=== PATIENT | male | born 1970 | race Caucasian/White ===

== ENCOUNTER 2020-09-02 08:42 | Emergency (ER) | payer OTHER ==
[2020-09-02 08:49] VITALS: RESP 18
[2020-09-02] MEDS ORDERED: LIDOCAINE 1% INJ 10MG/ML (20 ML MDV) SQ ONE (09:15)
[2020-09-02] MEDS ORDERED: KETOROLAC 15 MG/ML 1 ML VIAL IM STA (09:32)
--- NOTE | 2020-09-02 10:03 | US ---
EXAMINATION TYPE: US extremity nonvasc mass LT DATE OF EXAM: 09/02/2020 COMPARISON: NONE CLINICAL HISTORY: poss abscess L hand. Pain and swollen area left palm. Drainage attempted, nothing a spirated. Area of pain/swelling complex lesion = 2.x 2.2 x 1.3 cm, ? abscess. IMPRESSION: Collection as noted may reflect abscess.
--- NOTE | 2020-09-02 10:32 | ED ---
General Adult HPI - General Chief complaint: Extremity Injury, Upper Stated complaint: Extremity Injury Time Seen by Provider: 09/02/20 09:00 Source: patient, RN notes reviewed Mode of arrival: ambulatory Limitations: no limitations - History of Present Illness Initial comments: Patient is a 50-year-old male with a past history of diabetes who presents to the emergency room for pain of the left hand. Patient reports that he has a history of abscesses and believes he has an abscess of the left hand. States he has a history of MRSA. Patient states this has been there for about 3 days but seems to be worsening. States he tried to poke it himself but could not get pus.patient does not have any fevers. He denies difficulty bending his fingers. Denies spreading or streaking redness. Patient has no other complaints at this time including shortness of breath, chest pain, abdominal pain, nausea or vomiting, headache, or visual changes. - Related Data Home Medications Medication Instructions Recorded Confirmed Ibuprofen [Motrin Ib] 400 mg PO Q8H PRN 09/02/20 09/02/20 Previous Rx's Medication Instructions Recorded Clindamycin [Cleocin] 450 mg PO Q8H 7 Days #63 cap 09/02/20 Allergies Allergy/AdvReac Type Severity Reaction Status Date / Time Sulfa (Sulfonamide AdvReac Rash/Hives Verified 09/02/20 09:12 Antibiotics) Review of Systems ROS Statement: Those systems with pertinent positive or pertinent negative responses have been documented in the HPI. ROS Other: All systems not noted in ROS Statement are negative. Past Medical History Past Medical History: Diabetes Mellitus History of Any Multi-Drug Resistant Organisms: MRSA Date of last positivie culture/infection: 2013 MDRO Source:: bilat lower leg Past Surgical History: No Surgical Hx Reported Past Psychological History: No Psychological Hx Reported Smoking Status: Current every day smoker Past Alcohol Use History: Occasional Past Drug Use History: Marijuana General Exam Limitations: no limitations General appearance: alert, in no apparent distress Head exam: Present: atraumatic Eye exam: Present: normal appearance, PERRL, EOMI. Absent: scleral icterus ENT exam: Present: normal exam, mucous membranes moist Neck exam: Present: normal inspection, full ROM. Absent: tenderness Respiratory exam: Present: normal lung sounds bilaterally. Absent: respiratory distress, wheezes Cardiovascular Exam: Present: regular rate, normal rhythm, normal heart sounds Extremities exam: Present: full ROM (Full range of motion of all fingers including the left first and second digits.), tenderness (Tenderness to the palmar aspect of the left hand between the second and third metacarpal heads. There is a fluctuant area here measuring 2 cm x 2 cm), normal capillary refill (Capillary refill less than 2 seconds in the left upper extremity. Radial pulse 2+.), other (There is no streaking or spreading redness of the left hand. No tenderness of the flexor or extensor tendons.) Course Vital Signs 09/02/20 09/02/20 08:47 10:09 Temperature 97.9 F Pulse Rate 115 H 85 Respiratory 18 18 Rate Blood Pressure 184/93 173/103 O2 Sat by Pulse 98 100 Oximetry Procedures - Dawson Protocol (Time Out) Procedure Performed:: Incision and drainage of left palm abscess Performing Provider: Jose Mondragon Nurse: Li Morris Patient Identification (2 identifiers required): Chart, Verbal, Arm Band, Name, Birthdate Patient/Legal Cost Reduction Engineer has Confirmed: Identity, Site, Procedure, Consent Site: left palm Site Marked: Yes Site Verified With Patient/Guardian: Yes - Incision & Drainage Consent Obtained: verbal consent Indication: abscess Site: hand Size (cm): 2 Anesthetic Used: lidocaine 1% Amount (mLs): 2 I&D Cleaning Method: Alcohol Wipe Sterile Field Used?: Yes Scalpel Used: #11 Needle Aspiration Performed?: Yes I&D Drainage Obtained: Pus, Blood Packing: Iodoform Patient Tolerated Procedure: well, no complications Medical Decision Making - Medical Decision Making I did attempt incision and drainage was not able to get drainage. Therefore ultrasound was obtained of the left hand which did show a 2.2 x 2 x 1.3 cm collection. Based on physical examination likely abscess. Dr. Vivas used ul trasound guided incision and drainage and was able to obtain about 3 mL of pus. Patient was started on clindamycin given his history of MRSA an ALLERGY to sulfa. Patient is stable for discharge home at this time given no streaking or starting redness, fevers, tenderness of the tendons, or difficulty moving the fingers. However I discussed very strict return parameters patient which he is agreeable to. Disposition Clinical Impression: Abscess Disposition: HOME SELF-CARE Condition: Good Instructions (If sedation given, give patient instructions): Abscess (ED) Additional Instructions: We stick and erratic as directed. Do warm compresses. Follow up with primary care for a recheck in 2 days. If you have any worsening symptoms such as spreading or streaking redness, worsening swelling, fevers, difficulty moving the fingers, or any other concerning symptoms return immediately to the emergency room. Prescriptions: Clindamycin [Cleocin] 450 mg PO Q8H 7 Days #63 cap Is patient prescribed a controlled substance at d/c from ED?: No Referrals: Noman Garcia MD [Primary Care Provider] - 1-2 days Time of Disposition: 10:39
[2020-09-02] MEDS ORDERED: CLINDAMYCIN 150 MG CAP PO STA (10:40)
[2020-09-02 10:52] VITALS: BP 159/96; PULSE 86; TEMP 98.7
== END 2020-09-02 10:52 | disposition home or self-care (01) ==
LOC: EC 08:42
DX: L02.512 Cutaneous abscess of left hand (principal); F17.200 Nicotine dependence, unspecified, uncomplicated; Z88.2 Allergy status to sulfonamides; Z86.14 Personal history of Methicillin resistant Staphylococcus aureus infection
CPT/HCPCS: 76882; 99284; 10060; 96372; J2001; J1885

== ENCOUNTER 2023-11-24 09:01 | Emergency (ER) | payer BC, OTHER ==
[2023-11-24] MEDS: PROPARACAINE 0.5% OPHTH DROPS 15 ML BTL RIGHT EYE STA (09:16)
[2023-11-24] MEDS: FLUORESCEIN STRIPS 1 MG STRIP RIGHT EYE ONE (09:16)
[2023-11-24 09:34] VITALS: RESP 18; TEMP 98
--- NOTE | 2023-11-24 09:40 | ED ---
Eye Problem HPI - General Chief complaint: Eye Problems Stated complaint: R eye pain Time Seen by Provider: 11/24/23 09:05 Source: patient, RN notes reviewed Mode of arrival: ambulatory Limitations: no limitations - History of Present Illness Initial comments: This is a 53 year old male who presents to the emergency department for right eye pain. States that this began a few days ago. Reports clear discharge associated with this. Denies any difficulty with his vision. States that it is more of a discomfort as opposed to severe pain. He does not wear contacts. 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 He also rubs his eyes frequently. - Related Data Home Medications Medication Instructions Recorded Confirmed Ibuprofen [Motrin Ib] 400 mg PO Q8H PRN 09/02/20 09/02/20 Previous Rx's Medication Instructions Recorded Clindamycin [Cleocin] 450 mg PO Q8H 7 Days #63 cap 09/02/20 Allergies Allergy/AdvReac Type Severity Reaction Status Date / Time Sulfa (Sulfonamide AdvReac Rash/Hives Verified 11/24/23 09:05 Antibiotics) Review of Systems ROS Statement: Those systems with pertinent positive or pertinent negative responses have been documented in the HPI. ROS Other: All systems not noted in ROS Statement are negative. Past Medical History Past Medical History: Diabetes Mellitus History of Any Multi-Drug Resistant Organisms: MRSA Date of last positivie culture/infection: 2013 MDRO Source:: bilat lower leg Past Surgical History: No Surgical Hx Reported Past Psychological History: No Psychological Hx Reported Smoking Status: Current every day smoker Past Alcohol Use History: Occasional Past Drug Use History: Marijuana General Exam Limitations: no limitations General appearance: alert, in no apparent distress Head exam: Present: atraumatic, normocephalic, normal inspection Eye exam: Present: PERRL, EOMI, other (Right conjunctival injection with clear drainage. Small corneal abrasion. No foreign bodies.) Respiratory exam: Present: normal lung sounds bilaterally. Absent: respiratory distress, wheezes, rales, rhonchi, stridor Cardiovascular Exam: Present: regular rate, normal rhythm, normal heart sounds. Absent: systolic murmur, diastolic murmur, rubs, gallop, clicks Neurological exam: Present: alert, oriented X3, CN II-XII intact Psychiatric exam: Present: normal affect, normal mood Skin exam: Present: warm, dry, intact, normal color. Absent: rash Course Vital Signs 11/24/23 11/24/23 09:02 10:06 Temperature 98 F 98 F Pulse Rate 80 77 Respiratory 18 18 Rate Blood Pressure 170/90 150/89 O2 Sat by Pulse 98 98 Oximetry Medical Decision Making - Medical Decision Making This is a 53-year-old male who presents to the emergency department for right eye pain. Was pt. sent in by a medical professional or institution? @ -No Did you speak to anyone other than the patient for history? @ -No Did you review nursing and triage notes? @ -Yes, and I agree, it is accurate with regards to the patient's symptoms. Were old charts reviewed? @ -No Differential Diagnosis? @ -Differential Eye Pain: Conjuncitivitis (viral, bacterial, allergic), corneal abrasion, foreign body, iritis, uveitis, keratitis, acute angle closure glaucoma, this is not meant to be an all-inclusive list. EKG interpreted by me (3pts min.)? @ -Not obtained X-rays interpreted by me (1pt min.)? @ -Not obtained CT interpreted by me (1pt min.)? @ -Not obtained U/S interpreted by me (1pt. min.)? @ -Not obtained What testing was considered but not performed? (CT, X-rays, U/S, labs)? Why? @ -None What meds were considered but not given? Why? @ -None Did you discuss the management of the patient with other professionals? @ -No Did you reconcile home meds? @ -No Was smoking cessation discussed for >3mins.? @ -I discussed smoking cessation for greater than 3 minutes. The risk of smoking were discussed with the patient including but not limited to risks of cancer, stroke, coronary artery disease and COPD. Also discussed with patient were multiple methods of quitting smoking. Lastly we discussed the financial cost of smoking. Was critical care preformed (if so, how long)? @ -No Were there social determinants of health that impacted care today? How? (Homelessness, low income, unemployed, alcoholism, drug addiction, transportation, low edu. Level, literacy, decrease access to med. care, assisted, rehab)? @ -No Was there de-escalation of care discussed even if they declined? (Discuss DNR or withdrawal of care, Hospice)? @ -No What co-morbidities impacted this encounter? (DM, HTN, Smoking, COPD, CAD, Cancer, CVA, Hep., AIDS, mental health diagnosis, sleep apnea, morbid obesity)? @ -DM, smoking Was patient admitted / discharged? @ -Discharged. Fluorescein staining demonstrates a small corneal abrasion. No foreign bodies were identified. He may also have a component of viral conjunctivitis. Tetanus vaccine is up-to-date. He was given a bottle of ciprofloxacin eyedrops in the emergency department to use for 5 days. He was also given artificial tears for symptomatic control. Advised ibuprofen and Tylenol as needed for pain relief. Information for ophthalmology follow-up provided and he was discharged home in stable condition. Undiagnosed new problem with uncertain prognosis? @ -None Drug Therapy requiring intensive monitoring for toxicity (Heparin, Nitro, Insulin, Cardizem)? @ -None Were any procedures done? @ -None Diagnosis/symptom? @ -Corneal abrasion, conjunctivitis Acute, or Chronic, or Acute on Chronic? @ -Acute Uncomplicated (without systemic symptoms) or Complicated (systemic symptoms)? @ -Uncomplicated Side effects of treatment? @ -None Exacerbation, Progression, or Severe Exacerbation] @ -Not applicable Poses a threat to life or bodily function? @ -No Return precautions reviewed in depth, the patient is instructed to return to the emergency department with any new, worsening, or concerning symptoms. Patient verbalized understanding. This case was discussed in detail with the attending ED physician, Dr. Nicholas. Presentation, findings, and treatment plan discussed in detail as well. Disposition Clinical Impression: Viral conjunctivitis, Corneal abrasion, right, Nicotine dependence Disposition: HOME SELF-CARE Instructions (If sedation given, give patient instructions): Corneal Abrasion (ED), Conjunctivitis (ED) Additional Instructions: Return to the emergency department with any new, worsening, or concerning symptoms. Apply the ciprofloxacin eyedrops provided as 2 drops to the right eye 4 times daily. You can apply the ketorolac eyedrops as 1 drop to the right eye every 6 hours as needed for pain control. You can apply the artificial tears 4- 6 times daily to help with symptoms as well. You can also try applying cool compresses. Contact the ice cream chef office as listed below first thing Sunday morning for a follow-up appointment. Follow up with your primary care provider in 1-2 days. Is patient prescribed a controlled substance at d/c from ED?: No Referrals: None,Stated [Primary Care Provider] - 1-2 days Armond Rocha MD [STAFF PHYSICIAN] - 1-2 days Flakito Ashley MD [STAFF PHYSICIAN] - 1-2 days Time of Disposition: 09:40
[2023-11-24] MEDS: CIPROFLOXACIN 0.3% OPHTH SOLN 5 ML BTL RIGHT EYE STA (10:02)
[2023-11-24] MEDS: KETOROLAC 0.5% OPHTH DROPS 5 ML BTL RIGHT EYE STA (10:02)
[2023-11-24] MEDS: ARTIFICIAL TEARS-HYPROMELLOSE DROPS 15 ML BTL RIGHT EYE STA (10:02)
[2023-11-24 10:24] VITALS: BP 150/89; PULSE 77
== END 2023-11-24 09:14 | disposition home or self-care (01) ==
LOC: EC 09:01
DX: S05.01XA Injury of conjunctiva and corneal abrasion without foreign body, right eye, initial encounter (principal); B30.9 Viral conjunctivitis, unspecified; E11.9 Type 2 diabetes mellitus without complications; F17.200 Nicotine dependence, unspecified, uncomplicated; Z88.2 Allergy status to sulfonamides; X58.XXXA Exposure to other specified factors, initial encounter
CPT/HCPCS: 99283; 99406

== ENCOUNTER 2024-06-19 16:33 | Inpatient (IN) | payer BC ==
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
[2024-06-19] MEDS ORDERED: VANCOMYCIN IV PER PHARMACY 1 EACH MISC MISCELLANE PRN (17:17)
[2024-06-19] MEDS: ONDANSETRON 4 MG/2 ML VIAL IVP STA (17:38)
[2024-06-19] MEDS: MORPHINE SULFATE 4 MG/ML SYRINGE IV STA (17:39)
[2024-06-19] MEDS: SODIUM CHLORIDE 0.9% 1,000 ML IV STA ×2 (17:41→18:25)
[2024-06-19] MEDS: cefTRIAXone IN SWFI 1,000 MG/10 ML SYRINGE IVP STA (17:41)
[2024-06-19] MEDS: VANCOMYCIN 1,500 MG in SODIUM CHLORIDE 0.9% 500 ML 500 ML IVPB ONE (17:46)
[2024-06-19 17:48] LABS: Basophils # (A) 0.1 k/uL (0-0.2); Basophils % (A) 1 %; Eosinophils # (A) 0.1 k/uL (0-0.7); Eosinophils % (A) 1 %; HCT 45.4 % (39.0-53.0); HGB 15.3 gm/dL (13.0-17.5); Lymphocytes # (A) 1.9 k/uL (1.0-4.8); Lymphocytes % (A) 12 %; MCH 31.6 pg (25.0-35.0); MCHC 33.8 g/dL (31.0-37.0); MCV 93.5 fL (80.0-100.0); Monocytes # (A) 0.7 k/uL (0-1.0); Monocytes % (A) 5 %; Neutrophils # (A) 12.6 k/uL (1.3-7.7); Neutrophils % (A) 81 %; Platelet Count 231 k/uL (150-450); RBC 4.85 m/uL (4.30-5.90); RDW 12.7 % (11.5-15.5); WBC 15.6 k/uL (3.8-10.6)
[2024-06-19 17:56] LABS: INR 0.8 (<1.2); Partial Thromboplastin Time 22.1 sec (22.0-30.0); Prothrombin Time 9.4 sec (10.0-12.5)
--- NOTE | 2024-06-19 17:59 | XR ---
EXAMINATION TYPE: XR hand complete RT DATE OF EXAM: 06/19/2024 5:33 PM COMPARISON: None CLINICAL INDICATION: Male, 53 years old with history of pain, pain TECHNIQUE: XR hand complete RT 3views were obtained. FINDINGS: Diffuse soft tissue swelling throughout the hand. No osseous erosion. Normal alignment of t he visualized joints. No acute osseous pathology is identified. No significant degeneration IMPRESSION: Soft tissue swelling without evidence of osseous erosion. No evidence for fracture. [facility], , 06/19/2024 5:57 PM
[2024-06-19 18:04] LABS: ALT 31 U/L (4-49); African American GFR (CKD) >90 (>60 ml/min/1.73 sqM); Alcohol <10 mg/dL; Anion Gap 10 mmol/L; Blood Urea Nitrogen 12 mg/dL (9-20); C Reactive Protein 4.8 mg/dL (<1.0); Calcium 8.9 mg/dL (8.4-10.2); Carbon Dioxide 22 mmol/L (22-30); Chloride 101 mmol/L (98-107); Creatine Kinase 64 U/L (55-170); Glucose 357 mg/dL (74-99); Non-African American GFR(CKD) >90 (>60 ml/min/1.73 sqM); Sodium 133 mmol/L (137-145); Total Bilirubin 0.9 mg/dL (0.2-1.3)
[2024-06-19 18:44] LABS: AST 38 U/L (17-59); Albumin 4.6 g/dL (3.5-5.0); Alkaline Phosphatase 157 U/L (38-126); Magnesium 1.9 mg/dL (1.6-2.3); Potassium 4.4 mmol/L (3.5-5.1); Total Protein 7.4 g/dL (6.3-8.2)
[2024-06-19] MEDS ORDERED: ONDANSETRON 4 MG/2 ML VIAL IVP PRN (18:53)
[2024-06-19] MEDS ORDERED: NALOXONE 0.4 MG/ML 1 ML VIAL IV PRN (18:53)
[2024-06-19] MEDS: SODIUM CHLORIDE 0.9% 1,000 ML IV SCH (19:22)
[2024-06-19] MEDS: MORPHINE SULFATE 4 MG/ML SYRINGE IV PRN (21:32)
[2024-06-19] MEDS: KETOROLAC 15 MG/ML 1 ML VIAL IVP SCH (23:14)
[2024-06-20] MEDS ORDERED: VANCOMYCIN 1,500 MG in SODIUM CHLORIDE 0.9% 500 ML 500 ML IVPB SCH
[2024-06-20] MEDS: VANCOMYCIN 1,500 MG in SODIUM CHLORIDE 0.9% 500 ML 500 ML IVPB SCH (01:24)
[2024-06-20 10:59] LABS: ALT 22 U/L (10-49); AST 14 U/L (14-35); Albumin 3.6 g/dL (3.8-4.9); Albumin/Globulin Ratio 1.64 Ratio (1.60-3.17); Alkaline Phosphatase 63 U/L (41-126); BUN/Creat Ratio 13.33 Ratio (12.00-20.00); Basophils # (A) 0.07 X 10*3/uL (0.00-0.10); Basophils % (A) 0.6 %; Calcium 7.8 mg/dL (8.7-10.3); Carbon Dioxide 19.1 mmol/L (21.6-31.8); Chloride 101 mmol/L (96-109); Eosinophils # (A) 0.12 X 10*3/uL (0.04-0.35); Eosinophils % (A) 1.1 %; Globulin 2.2 g/dL (1.6-3.3); Glucose 275 mg/dL (70-110); HCT 40.5 % (39.6-50.0); HGB 13.1 g/dL (13.0-17.0); Lymphocytes # (A) 1.41 X 10*3/uL (0.90-5.00); Lymphocytes % (A) 12.4 %; MCH 30.3 pg (27.0-32.0); MCHC 32.3 g/dL (32.0-37.0); MCV 93.5 FL (80.0-97.0); Magnesium 1.7 mg/dL (1.5-2.4); Mean Platelet Volume 9.9 FL (9.5-12.2); Monocytes # (A) 0.95 X 10*3/uL (0.20-1.00); Monocytes % (A) 8.3 %; NRBC Per 100 WBC 0 X 10*3/uL (0.00-0.01); Neutrophils # (A) 8.77 X 10*3/uL (1.80-7.70); Neutrophils % (A) 77.1 %; Phosphorus 2.1 mg/dL (2.4-5.1); Platelet Count 214 X 10*3/uL (140-440); Potassium 3.8 mmol/L (3.5-5.5); RBC 4.33 X 10*6/uL (4.40-5.60); RDW 12.3 % (11.5-14.5); Sodium 134 mmol/L (135-145); Total Bilirubin 0.4 mg/dL (0.3-1.2); Total Protein 5.8 g/dL (6.2-8.2); WBC 11.38 X 10*3/uL (4.50-10.00)
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
[2024-06-20 11:46] LABS: C Reactive Protein 17.1 mg/dL (<1.0)
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
[2024-06-21 06:06] LABS: Glucose,Whole Blood 254 mg/dL (70-110)
[2024-06-21] MEDS ORDERED: DEXTROSE 50% SYRINGE 50 ML IVP PRN ×4 (06:17→10:29)
[2024-06-21] MEDS: INSULIN ASPART (NovoLOG) 100 UNIT/ML VIAL SQ SCH (06:38)
[2024-06-21 09:08] LABS: African American GFR (CKD) >90 (>60 ml/min/1.73 sqM); Non-African American GFR(CKD) >90 (>60 ml/min/1.73 sqM)
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
[2024-06-21] MEDS: VANCOMYCIN TROUGH DUE 1 EACH MISC MISCELLANE ONE (09:37)
--- NOTE | 2024-06-21 11:34 | P.PCN ---
Date of Procedure: 06/21/24 Preoperative Diagnosis: Right hand infection with abscess between fourth and fifth metacarpal head Postoperative Diagnosis: Same Anesthesia: none Pathology: other (Deep wound culture from in between metacarpal heads sent to microbiology) Condition: stable Disposition: no change Description of Procedure: The patient was seen and examined at bedside today. He feels he has made some progress overnight with his IV antibiotics at his right hand. He still has some redness and soreness at the ulnar aspect of his right hand in particular between his metacarpal heads. He was able to have flexion and extension of the metacarpal heads and his interphalangeal joints. There was some tenderness between the metacarpal heads. The scabbing was apparent and stable. There seems to be some fluctuance between the metacarpal heads. I discussed with the patient the infection at the area and the possibly of an abscess at the space. He had some tenderness at the volar aspect of his metacarpal heads between the fourth and fifth. I discussed possibility of doing some gentle debridement at the area at bedside. We discussed possibly of going to surgery and doing this more formally but he felt he could tolerate some debridement at bedside. He has a long history of diabetes and neuropathy of his hands. He has had some diminished management of his diabetes over the past couple years. I felt we could do a little bit of deeper debridement if he would be able to tolerate I discussed the risk complications and the possibility that we may not be able to achieve full debridement and evacuation of the abscess but he felt he would be able to tolerate attempting this at bedside. he agreed to sign informed consent. At bedside I collected the appropriate materials and serially washed over the area I was able to dental debridement around the scabbing and remove superficial and fraying fragments at the area. The wound was approximately 2 x 2 x 1 cm deep. After unroofing some of the scabbing and soft tissue there was some fluid and pus that was coming from the deep area toward the metacarpal heads. I was able to probe the area and remove and debride some denuded tissue. As it was removed and excised about 1 to 2 cc of purulence. The wound was copiously irrigated blotted dry and a deep culture was taken from between the metacarpal heads of the purulent material. The wound was copiously irrigated with 1 L of saline cleaned dried and dressed with dry gauze. The patient tolerated well.
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
[2024-06-21 11:56] LABS: Glucose,Whole Blood 251 mg/dL (70-110)
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
[2024-06-21 14:56] VITALS: BMI 25.8
[2024-06-21 17:27] LABS: Glucose,Whole Blood 287 mg/dL (70-110)
[2024-06-21 20:37] LABS: Glucose,Whole Blood 263 mg/dL (70-110)
[2024-06-21] MEDS: INSULIN DETEMIR (LEVEMIR) 100 UNIT/ML SYR SQ SCH (20:42)
[2024-06-22 06:08] LABS: Glucose,Whole Blood 248 mg/dL (70-110)
[2024-06-22] MEDS: VANCOMYCIN 1,750 MG in SODIUM CHLORIDE 0.9% 500 ML 500 ML IVPB SCH (09:45)
--- NOTE | 2024-06-22 10:05 | P.PN ---
Progress Note - Text Progress Note Date: 06/22/24 Patient seen and examined at bedside. He says his hand still feels sore but may be slightly better. He denies any fevers or chills. Denies any new pains or changes. On exam Afebrile stable vital signs At his right hand I removed the dressing. There is some some small serosanguineous drainage on the dressing. Still able to milk some of the fluid and purulence out of the wound site itself. The erythema is less. He has adequate motion at his fingers. There is no streaking up his forearm. There is no tenderness over his tendon sheath Lab results from microbiology show presumptive MRSA from the wound culture yesterday Assessment and plan Right hand wound infection with abscess at the metatarsal head soft tissue status post bedside I&D yesterday Presumptive MRSA wound abscess, improving Diabetes with neuropathy The patient's wound site appears to be slowly healing. He is on appropriate antibiotics. There is still some drainage at the area. At bedside today I packed the wound lightly with iodoform gauze. He tolerated well. I think this can help with the drainage. We will have wound care see him for possible regular wound management and gauze changes. Final cultures are still pending. He will continue medical management as well.
[2024-06-22 10:08] LABS: ALT 38 U/L (10-49); AST 29 U/L (14-35); Albumin 3.3 g/dL (3.8-4.9); Albumin/Globulin Ratio 1.57 Ratio (1.60-3.17); Alkaline Phosphatase 62 U/L (41-126); BUN/Creat Ratio 20.67 Ratio (12.00-20.00); Blood Urea Nitrogen 12.4 mg/dL (9.0-27.0); Carbon Dioxide 26.9 mmol/L (21.6-31.8); Chloride 101 mmol/L (96-109); Globulin 2.1 g/dL (1.6-3.3); Glucose 269 mg/dL (70-110); Potassium 3.9 mmol/L (3.5-5.5); Sodium 136 mmol/L (135-145); Total Bilirubin <0.2 mg/dL (0.3-1.2); Total Protein 5.4 g/dL (6.2-8.2)
[2024-06-22 12:36] LABS: Glucose,Whole Blood 331 mg/dL (70-110)
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
[2024-06-22 14:06] LABS: Basophils % (A) 1.2 %; Eosinophils # (A) 0.19 X 10*3/uL (0.04-0.35); Eosinophils % (A) 2.2 %; HCT 37.6 % (39.6-50.0); HGB 12.5 g/dL (13.0-17.0); Lymphocytes # (A) 1.73 X 10*3/uL (0.90-5.00); Lymphocytes % (A) 20.2 %; MCH 30.7 pg (27.0-32.0); MCHC 33.2 g/dL (32.0-37.0); MCV 92.4 FL (80.0-97.0); Mean Platelet Volume 9.7 FL (9.5-12.2); Monocytes # (A) 0.74 X 10*3/uL (0.20-1.00); Monocytes % (A) 8.6 %; NRBC Per 100 WBC 0 X 10*3/uL (0.00-0.01); Neutrophils # (A) 5.74 X 10*3/uL (1.80-7.70); Platelet Count 242 X 10*3/uL (140-440); RBC 4.07 X 10*6/uL (4.40-5.60); RDW 12.3 % (11.5-14.5); WBC 8.57 X 10*3/uL (4.50-10.00)
[2024-06-22 17:28] LABS: Glucose,Whole Blood 301 mg/dL (70-110)
[2024-06-22 20:09] LABS: Glucose,Whole Blood 336 mg/dL (70-110)
[2024-06-22] MEDS: INSULIN DETEMIR (LEVEMIR) 100 UNIT/ML SYR SQ SCH (20:38)
[2024-06-23 05:41] LABS: Glucose,Whole Blood 233 mg/dL (70-110)
[2024-06-23 08:53] LABS: African American GFR (CKD) >90 (>60 ml/min/1.73 sqM); Non-African American GFR(CKD) >90 (>60 ml/min/1.73 sqM)
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
[2024-06-23] MEDS: VANCOMYCIN TROUGH DUE 1 EACH MISC MISCELLANE ONE (10:39)
[2024-06-23 12:27] LABS: Glucose,Whole Blood 227 mg/dL (70-110)
[2024-06-23 17:24] LABS: Glucose,Whole Blood 313 mg/dL (70-110)
[2024-06-23 20:18] LABS: Glucose,Whole Blood 240 mg/dL (70-110)
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
[2024-06-24 06:03] LABS: African American GFR (CKD) >90 (>60 ml/min/1.73 sqM); Non-African American GFR(CKD) >90 (>60 ml/min/1.73 sqM)
[2024-06-24 06:05] LABS: Glucose,Whole Blood 262 mg/dL (70-110)
[2024-06-24 07:36] VITALS: RESP 16
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
[2024-06-24 12:16] LABS: Glucose,Whole Blood 252 mg/dL (70-110)
[2024-06-24 13:56] VITALS: BP 154/87; PULSE 68; TEMP 97.9
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
== END 2024-06-24 16:40 | disposition home or self-care (01) | DRG 580 ==
LOC: EC 16:33 → 6NMEDSUR 18:55 → OBSVTOIN 06-20 12:56 → 6NMEDSUR 06-20 12:59
PROVIDERS: ADMIT Hospitalist; ATTEND Hospitalist
PROC: 0JBJ0ZZ Excision of Right Hand Subcutaneous Tissue and Fascia, Open Approach (ICD-10-PCS; principal; 2024-06-21)
DX: L02.511 Cutaneous abscess of right hand (principal); F10.239 Alcohol dependence with withdrawal, unspecified; L03.113 Cellulitis of right upper limb; E11.65 Type 2 diabetes mellitus with hyperglycemia; E11.40 Type 2 diabetes mellitus with diabetic neuropathy, unspecified; T23.061A Burn of unspecified degree of back of right hand, initial encounter; E11.622 Type 2 diabetes mellitus with other skin ulcer; L98.492 Non-pressure chronic ulcer of skin of other sites with fat layer exposed; R74.01 Elevation of levels of liver transaminase levels; B95.1 Streptococcus, group B, as the cause of diseases classified elsewhere; F17.200 Nicotine dependence, unspecified, uncomplicated; B95.62 Methicillin resistant Staphylococcus aureus infection as the cause of diseases classified elsewhere; X16.XXXA Contact with hot heating appliances, radiators and pipes, initial encounter; Y99.8 Other external cause status; Y90.0 Blood alcohol level of less than 20 mg/100 ml; Z87.11 Personal history of peptic ulcer disease; Z91.199 Patient's noncompliance with other medical treatment and regimen due to unspecified reason
CPT/HCPCS: 36415; 80053; 80202; 80320; 82550; 82565; 83036; 83605; 83735; 84100; 84145; 84443; 85025; 85610; 85652; 85730; 86140; 87040; 87070; 87077; 87186; 87205; 96365; 96366; 96368; 96375; 96376; 99284

== ENCOUNTER 2024-09-18 05:09 | Inpatient (IN) | payer BC ==
[2024-09-18] MEDS ORDERED: VANCOMYCIN IV PER PHARMACY 1 EACH MISC MISCELLANE PRN (05:39)
--- NOTE | 2024-09-18 06:03 | ED ---
General Adult HPI <Lai Shanks - Last Filed: 09/18/24 08:52> - General Source: patient Mode of arrival: wheelchair Limitations: no limitations <Manju Plasencia - Last Filed: 09/21/24 12:50> - General Chief complaint: Extremity Problem,Nontraumatic Stated complaint: Staph Infection R Leg Time Seen by Provider: 09/18/24 05:38 - History of Present Illness Initial comments: This is a 54-year-old gentleman with a past medical history of MRSA cellulitis presenting today for right groin infection. Patient states on Sunday he began noticing swelling to his inner right thigh. Continued to progress through this morning. Endorses nausea but no emesis. Denies chest pain. Denies abdominal pain, vomiting or diarrhea. Denies fevers endorses chills. No recent antibiotics. Denies difficulty urinating, hematuria or dysuria. (Manju Plasencia) - Related Data Home Medications Medication Instructions Recorded Confirmed Dapagliflozin Propanediol [Farxiga] 10 mg PO DAILY 09/18/24 09/18/24 Previous Rx's Medication Instructions Recorded metFORMIN HCL 1,000 mg PO BID #60 tablet 06/24/24 Allergies Allergy/AdvReac Type Severity Reaction Status Date / Time Sulfa (Sulfonamide Allergy Rash/Hives Verified 09/18/24 08:43 Antibiotics) Review of Systems ROS Other: All systems not noted in ROS Statement are negative. <DimitrisLai - Last Filed: 09/18/24 08:52> ROS Other: All systems not noted in ROS Statement are negative. <Manju Plasencia - Last Filed: 09/21/24 12:50> ROS Statement: Those systems with pertinent positive or pertinent negative responses have been documented in the HPI. Past Medical History Past Medical History: Diabetes Mellitus Additional Past Medical History / Comment(s): staph infection History of Any Multi-Drug Resistant Organisms: MRSA Date of last positivie culture/infection: 06/21/24 MDRO Source:: rt hand, bilat lower leg Past Surgical History: No Surgical Hx Reported Past Psychological History: No Psychological Hx Reported Smoking Status: Current every day smoker Past Alcohol Use History: Occasional Past Drug Use History: Marijuana <Manju Plasencia - Last Filed: 09/21/24 12:50> General Exam Limitations: no limitations <Manju Plasencia - Last Filed: 09/21/24 12:50> - General Exam Comments Initial Comments: PE: CONSTITUTIONAL: No apparent distress, well appearing SKIN: Warm, dry, no jaundice, hives or petechiae. Fluctuant area of erythema and swelling approx 10 cm in diameter without discharge, slight erythematous streaking towards groin EYES: Pupils are equally round, extraocular movements intact without nystagmus, clear conjunctiva, non-icteric sclera HENT: Normocephalic, atraumatic, moist mucus membranes, oropharynx clear without exudates NECK: , Full range of motion, normal appearance PULMONARY: Clear to auscultation without wheezes, rhonchi, or rales, normal excursion, no accessory muscle use and no stridor CARDIOVASCULAR: Tachycardia, regular rate, rhythm, normal S1 and S2. No appreciated murmurs, rubs or gallops. Strong radial pulses with intact distal perfusion. No lower extremity edema GASTROINTESTINAL: Soft, active bowel sounds throughout, non-tender, non- distended, no palpable masses, no rebound or guarding. 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 Moves all extremities x 4 without motor or sensory deficit PSYCHIATRIC:_normal mood and affect, thought process is clear and linear (Manju Plasencia) Course Vital Signs 09/18/24 09/18/24 09/18/24 05:14 08:17 09:26 Temperature 97.2 F L 98.7 F Pulse Rate 126 H 106 H 101 H Respiratory 16 24 20 Rate Blood Pressure 170/105 154/54 159/89 O2 Sat by Pulse 100 99 97 Oximetry 09/18/24 09/18/24 09/18/24 11:00 14:51 16:08 Temperature Pulse Rate 105 H 96 91 Respiratory 18 18 18 Rate Blood Pressure 140/78 143/83 134/85 O2 Sat by Pulse 98 99 99 Oximetry 09/18/24 09/19/24 09/19/24 22:00 03:39 05:47 Temperature 97.7 F 97.6 F Pulse Rate 87 80 81 Respiratory 18 17 15 Rate Blood Pressure 121/78 114/72 124/78 O2 Sat by Pulse 100 100 99 Oximetry 09/19/24 09/19/24 09/19/24 09:14 11:25 13:55 Temperature 98.0 F Pulse Rate 78 75 81 Respiratory 22 14 12 Rate Blood Pressure 136/82 118/79 123/78 O2 Sat by Pulse 100 99 99 Oximetry 09/19/24 17:14 Temperature 98.2 F Pulse Rate 79 Respiratory 12 Rate Blood Pressure 142/83 O2 Sat by Pulse 99 Oximetry EKG Findings - EKG Comments: EKG Findings:: Sinus tachycardia, rate 113 bpm NH interval 137 ms QT/QTc 310/377 ms, normal axis, no ST elevations or depressions, artifact present throughout, no STEMI <Manju Plasencia - Last Filed: 09/21/24 12:50> Medical Decision Making - Lab Data Result diagrams: 09/18/24 06:27 09/18/24 06:27 <Lai Shanks - Last Filed: 09/18/24 08:52> - Lab Data Result diagrams: 09/21/24 07:07 09/21/24 07:07 <Manju Plasencia - Last Filed: 09/21/24 12:50> - Medical Decision Making Patient is a 54-year-old male who was signed out to me pending results of remaining workup. Briefly, patient presents with right thigh pain, warmth, swelling with concern for infection. Is on the posterior medial aspect of the right thigh. No groin extension. Mildly fluctuant. Has a history of diabetes. Has been present for a few days. Laboratory studies returned remarkable for a white count of 22, as well as what appears to be DKA with hyperglycemia in the mid 200s, with a high anion gap and carbon dioxide less than 5. Patient is ac etone positive. Patient is tachycardic. No fever. Hemodynamically stable otherwise. Sepsis criteria met for prior physician at unknown time, however blood cultures and vancomycin ordered at approximately 6:30 AM. This is likely when the patient met criteria. Blood cultures already obtained and sent. Patient was started on broad-spectrum vancomycin and Rocephin and I did add on additional do sing of cefepime. Patient had multiple fluid boluses ordered for the patient to meet this 30 cc/kg fluid bolus requirement. I placed the patient on DKA protocol. CT imaging is interpreted by myself returned remarkable for inflammatory changes as well as a moderate size focal abscess in the medial right thigh with involvement of the anterior medial right thigh muscle. After the patient. He was in agreement the plan for admission workup. Consult placed to Dr. Gonzalez of general surgery. Consult to infectious disease placed. Spoke with the admitting provider, Dr. Cavazos of [facility] who accepted the admission. Diagnosis/symptom? @ -Sepsis secondary to Right thigh abscess/infection, DKA Acute, or Chronic, or Acute on Chronic? @ -Acute Uncomplicated (without systemic symptoms) or Complicated (systemic symptoms)? @ -Complicated Side effects of treatment? @ -None Exacerbation, Progression, or Severe Exacerbation] @ -No Poses a threat to life or bodily function? @ -Yes (Lai Shanks) Was pt. sent in by a medical professional or institution (, PA, YOUTH DIRECTOR, urgent care, hospital, or care home...) When possible be specific @ -No Did you speak to anyone other than the patient for history (EMS, parent, family, police, friend...)? What history was obtained from this source @ -No Did you review nursing and triage notes (agree or disagree)? Why? @ -I reviewed nursing and triage notes-patient here for right thigh pain, concern for MRSA infection Were old charts reviewed (outside hosp., previous admission, EMS record, old EKG, old radiological studies, urgent care reports/EKG's, care home records)? Report findings @ -Medical records reviewed reviewed discharge summary from 06/19/2024, patient had been admitted for right hand cellulitis and treated for alcohol drawl syndrome as well, blood cultures did show MRSA and patient was discharged on Zyvox Differential Diagnosis (chest pain, altered mental status, abdominal pain women, abdominal pain men, vaginal bleeding, weakness, fever, dyspnea, syncope, headache, dizziness, GI bleed, back pain, seizure, CVA, palpatations, mental health, musculoskeletal)? @Differential diagnosis remains broad over top considerations include cellulitis, abscess, infected hematoma, necrotic lymph node, this is not an all inclusive list EKG interpreted by me (3pts min.). @ -As above X-rays interpreted by me (1pt min.). @ -None done CT interpreted by me (1pt min.). @ pending at time of sign out U/S interpreted by me (1pt. min.). @ -None done What testing was considered but not performed or refused? (CT, X-rays, U/S, labs)? Why? @ -None What meds were considered but not given or refused? Why? @ -None Did you discuss the management of the patient with other professionals (professionals i.e. , PA, YOUTH DIRECTOR, lab, RT, psych nurse, social services analyst, car knocker, teacher, code enforcement officer, home health care case manager)? Give summary @ -No Was smoking cessation discussed for >3mins.? @ -No Was critical care preformed (if so, how long)? @ -No Were there social determinants of health that impacted care today? How? (Homelessness, low income, unemployed, alcoholism, drug addiction, transportation, low edu. Level, literacy, decrease access to med. care, [place] [facility], rehab)? @ -No Was there de-escalation of care discussed even if they declined (Discuss DNR or withdrawal of care, Hospice)? @ -No What co-morbidities impacted this encounter? (DM, HTN, Smoking, COPD, CAD, Cancer, CVA, ARF, Chemo, Hep., AIDS, mental health diagnosis, sleep apnea, morbid obesity)? @ DM, MRSA Was patient admitted / discharged? Hospital course, mention meds given and route, prescriptions, significant lab abnormalities, going to OR and other pertinent info. @ -Signed out to oncoming physician, Dr. Shanks, anticipate admission- Patient is a pleasant 54 y/o gentleman, hx DM, MRSA infection presenting for right thigh infection. Patient tachycardic on arrival, temp 97.2 oral, Blood pressure 170/105, respiratory rate of 16 and pulse ox of 100%. Exam significant for large palpable area of fluctuance and erythema of the right thigh, there is some streaking towards the right groin, there is no crepitus to palpation, erythema or swelling or tenderness palpation of the perianal region or testicular region. Given area of infection and its proximity to region, hx DM, will obtain CT pelvis to ensure no extension into perianal region. Vancomycin and Rocephin ordered, comprehensive labs, blood culture, lactic, CRP, 30 cc/kg IV fluid bolus. Morphine ordered for pain control. Of note patient's discharge summary from his recent admission in June stated he had a history of alcohol drawl syndrome. When I asked the patient about this he denied any history of alcohol use or alcohol withdrawal. States he does not drink alcohol currently. Patient signed out to oncoming physician pending completion of labs/imaging. (Manju Plasencia) - Lab Data Lab Results 09/18/24 09/18/24 09/18/24 Range/Units 06:27 06:27 06:27 WBC 22.1 H (3.8-10.6) k/uL RBC 5.34 (4.30-5.90) m/uL Hgb 15.9 (13.0-17.5) gm/dL Hct 51.3 (39.0-53.0) % MCV 96.1 (80.0-100.0) fL MCH 29.8 (25.0-35.0) pg MCHC 31.0 (31.0-37.0) g/dL RDW 13.8 (11.5-15.5) % Plt Count 347 (150-450) k/uL MPV 7.1 Neutrophils % 89 % Lymphocytes % 5 % Monocytes % 4 % Eosinophils % 0 % Basophils % 0 % Neutrophils # 19.7 H (1.3-7.7) k/uL Lymphocytes # 1.0 (1.0-4.8) k/uL Monocytes # 1.0 (0-1.0) k/uL Eosinophils # 0.0 (0-0.7) k/uL Basophils # 0.1 (0-0.2) k/uL Hypochromasia Moderate PT 10.8 (10.0-12.5) sec INR 1.0 (<1.2) APTT 26.7 (22.0-30.0) sec VBG pH (7.31-7.41) VBG pCO2 (37-51) mmHg VBG HCO3 (24-28) mmol/L Sodium 132 L (137-145) mmol/L Potassium 4.6 (3.5-5.1) mmol/L Chloride 99 (98-107) mmol/L Carbon Dioxide <5 L* (22-30) mmol/L Anion Gap mmol/L BUN 15 (9-20) mg/dL Creatinine 0.84 (0.66-1.25) mg/dL Est GFR (CKD-EPI)AfAm >90 (>60 ml/min/1.73 sqM) Est GFR (CKD-EPI)NonAf >90 (>60 ml/min/1.73 sqM) Glucose 243 H (74-99) mg/dL POC Glucose (mg/dL) (70-110) mg/dL POC Glu Hangar Attendant ID Estimated Ave Glu mg/dL mg/dL Hemoglobin A1c (<=6.0) % Plasma Lactic Acid Yoandy (0.7-2.0) mmol/L Calcium 9.1 (8.4-10.2) mg/dL Total Bilirubin 0.6 (0.2-1.3) mg/dL AST 20 (17-59) U/L ALT 19 (4-49) U/L Alkaline Phosphatase 88 (38-126) U/L C-Reactive Protein (<1.0) mg/dL Total Protein 7.4 (6.3-8.2) g/dL Albumin 4.2 (3.5-5.0) g/dL Serum Alcohol mg/dL Acetone, Qual (Negative) 09/18/24 09/18/24 09/18/24 Range/Units 06:27 06:27 06:27 WBC (3.8-10.6) k/uL RBC (4.30-5.90) m/uL Hgb (13.0-17.5) gm/dL Hct (39.0-53.0) % MCV (80.0-100.0) fL MCH (25.0-35.0) pg MCHC (31.0-37.0) g/dL RDW (11.5-15.5) % Plt Count (150-450) k/uL MPV Neutrophils % % Lymphocytes % % Monocytes % % Eosinophils % % Basophils % % Neutrophils # (1.3-7.7) k/uL Lymphocytes # (1.0-4.8) k/uL Monocytes # (0-1.0) k/uL Eosinophils # (0-0.7) k/uL Basophils # (0-0.2) k/uL Hypochromasia PT (10.0-12.5) sec INR (<1.2) APTT (22.0-30.0) sec VBG pH (7.31-7.41) VBG pCO2 (37-51) mmHg VBG HCO3 (24-28) mmol/L Sodium (137-145) mmol/L Potassium (3.5-5.1) mmol/L Chloride (98-107) mmol/L Carbon Dioxide (22-30) mmol/L Anion Gap mmol/L BUN (9-20) mg/dL Creatinine (0.66-1.25) mg/dL Est GFR (CKD-EPI)AfAm (>60 ml/min/1.73 sqM) Est GFR (CKD-EPI)NonAf (>60 ml/min/1.73 sqM) Glucose (74-99) mg/dL POC Glucose (mg/dL) (70-110) mg/dL POC Glu Hangar Attendant ID Estimated Ave Glu mg/dL mg/dL Hemoglobin A1c (<=6.0) % Plasma Lactic Acid Yoandy 1.6 (0.7-2.0) mmol/L Calcium (8.4-10.2) mg/dL Total Bilirubin (0.2-1.3) mg/dL AST (17-59) U/L ALT (4-49) U/L Alkaline Phosphatase (38-126) U/L C-Reactive Protein 36.6 H (<1.0) mg/dL Total Protein (6.3-8.2) g/dL Albumin (3.5-5.0) g/dL Serum Alcohol mg/dL Acetone, Qual Positive (Negative) 09/18/24 09/18/24 09/18/24 Range/Units 06:27 07:37 07:37 WBC (3.8-10.6) k/uL RBC (4.30-5.90) m/uL Hgb (13.0-17.5) gm/dL Hct (39.0-53.0) % MCV (80.0-100.0) fL MCH (25.0-35.0) pg MCHC (31.0-37.0) g/dL RDW (11.5-15.5) % Plt Count (150-450) k/uL MPV Neutrophils % % Lymphocytes % % Monocytes % % Eosinophils % % Basophils % % Neutrophils # (1.3-7.7) k/uL Lymphocytes # (1.0-4.8) k/uL Monocytes # (0-1.0) k/uL Eosinophils # (0-0.7) k/uL Basophils # (0-0.2) k/uL Hypochromasia PT (10.0-12.5) sec INR (<1.2) APTT (22.0-30.0) sec VBG pH 7.12 L* (7.31-7.41) VBG pCO2 23 L (37-51) mmHg VBG HCO3 8 L* (24-28) mmol/L Sodium (137-145) mmol/L Potassium (3.5-5.1) mmol/L Chloride (98-107) mmol/L Carbon Dioxide (22-30) mmol/L Anion Gap mmol/L BUN (9-20) mg/dL Creatinine (0.66-1.25) mg/dL Est GFR (CKD-EPI)AfAm (>60 ml/min/1.73 sqM) Est GFR (CKD-EPI)NonAf (>60 ml/min/1.73 sqM) Glucose (74-99) mg/dL POC Glucose (mg/dL) (70-110) mg/dL POC Glu Hangar Attendant ID Estimated [address] Glu mg/dL 194 mg/dL Hemoglobin A1c 8.4 H (<=6.0) % Plasma Lactic Acid Yoandy (0.7-2.0) mmol/L Calcium (8.4-10.2) mg/dL Total Bilirubin (0.2-1.3) mg/dL AST (17-59) U/L ALT (4-49) U/L Alkaline Phosphatase (38-126) U/L C-Reactive Protein (<1.0) mg/dL Total Protein (6.3-8.2) g/dL Albumin (3.5-5.0) g/dL Serum Alcohol <10 mg/dL Acetone, Qual (Negative) 09/18/24 Range/Units 07:57 WBC (3.8-10.6) k/uL RBC (4.30-5.90) m/uL Hgb (13.0-17.5) gm/dL Hct (39.0-53.0) % MCV (80.0-100.0) fL MCH (25.0-35.0) pg MCHC (31.0-37.0) g/dL RDW (11.5-15.5) % Plt Count (150-450) k/uL MPV Neutrophils % % Lymphocytes % % Monocytes % % Eosinophils % % Basophils % % Neutrophils # (1.3-7.7) k/uL Lymphocytes # (1.0-4.8) k/uL Monocytes # (0-1.0) k/uL Eosinophils # (0-0.7) k/uL Basophils # (0-0.2) k/uL Hypochromasia PT (10.0-12.5) sec INR (<1.2) APTT (22.0-30.0) sec VBG pH (7.31-7.41) VBG pCO2 (37-51) mmHg VBG HCO3 (24-28) mmol/L Sodium (137-145) mmol/L Potassium (3.5-5.1) mmol/L Chloride (98-107) mmol/L Carbon Dioxide (22-30) mmol/L Anion Gap mmol/L BUN (9-20) mg/dL Creatinine (0.66-1.25) mg/dL Est GFR (CKD-EPI)AfAm (>60 ml/min/1.73 sqM) Est GFR (CKD-EPI)NonAf (>60 ml/min/1.73 sqM) Glucose (74-99) mg/dL POC Glucose (mg/dL) 276 H (70-110) mg/dL POC Glu Hangar Attendant ID Gigi Gunter [address] Glu mg/dL mg/dL Hemoglobin A1c (<=6.0) % Plasma Lactic Acid Yoandy (0.7-2.0) mmol/L Calcium (8.4-10.2) mg/dL Total Bilirubin (0.2-1.3) mg/dL AST (17-59) U/L ALT (4-49) U/L Alkaline Phosphatase (38-126) U/L C-Reactive Protein (<1.0) mg/dL Total Protein (6.3-8.2) g/dL Albumin (3.5-5.0) g/dL Serum Alcohol mg/dL Acetone, Qual (Negative) Disposition Time of Disposition: 08:10 <Lai Shanks - Last Filed: 09/18/24 08:52> <Manju Plasencia - Last Filed: 09/21/24 12:50> Clinical Impression: DKA (diabetic ketoacidosis), Abscess of right thigh, Sepsis Disposition: ADMITTED IP TO THIS [facility] Condition: Serious
[2024-09-18 06:48] LABS: Basophils # (A) 0.1 k/uL (0-0.2); Basophils % (A) 0 %; Eosinophils % (A) 0 %; HCT 51.3 % (39.0-53.0); HGB 15.9 gm/dL (13.0-17.5); Hypochromasia Moderate; Lymphocytes % (A) 5 %; MCH 29.8 pg (25.0-35.0); MCV 96.1 fL (80.0-100.0); Mean Platelet Volume 7.1; Monocytes % (A) 4 %; Neutrophils # (A) 19.7 k/uL (1.3-7.7); Neutrophils % (A) 89 %; Platelet Count 347 k/uL (150-450); RBC 5.34 m/uL (4.30-5.90); RDW 13.8 % (11.5-15.5); WBC 22.1 k/uL (3.8-10.6)
[2024-09-18] MEDS: ONDANSETRON 4 MG/2 ML VIAL IVP STA (06:50)
[2024-09-18] MEDS: MORPHINE SULFATE 4 MG/ML SYRINGE IVP STA ×2 (06:51→09:20)
[2024-09-18 06:56] LABS: Partial Thromboplastin Time 26.7 sec (22.0-30.0); Prothrombin Time 10.8 sec (10.0-12.5)
[2024-09-18 07:02] LABS: ALT 19 U/L (4-49); AST 20 U/L (17-59); African American GFR (CKD) >90 (>60 ml/min/1.73 sqM); Albumin 4.2 g/dL (3.5-5.0); Alkaline Phosphatase 88 U/L (38-126); Blood Urea Nitrogen 15 mg/dL (9-20); Calcium 9.1 mg/dL (8.4-10.2); Chloride 99 mmol/L (98-107); Glucose 243 mg/dL (74-99); Non-African American GFR(CKD) >90 (>60 ml/min/1.73 sqM); Potassium 4.6 mmol/L (3.5-5.1); Sodium 132 mmol/L (137-145); Total Bilirubin 0.6 mg/dL (0.2-1.3); Total Protein 7.4 g/dL (6.3-8.2)
[2024-09-18 07:27] LABS: Carbon Dioxide <5 mmol/L (22-30)
--- NOTE | 2024-09-18 07:45 | CT ---
EXAMINATION TYPE: CT pelvis wo con DATE OF EXAM: 09/18/2024 COMPARISON: None. CLINICAL INDICATION: Male, 54 years old with history of R. thigh abscess, check for involve; PHH, Right thigh abscess check for involvement CT DLP: 285.2 mGycm Automated exposure control for dose reduction was used. FINDINGS: In the medial aspect of the right thigh there is focal ill-defined fluid collection with foci of air measuring approximately 6.0 x 3.1 cm transversely axial image 99 x 6.6 cm coronal image 48 with adjac ent moderate ill-defined fat stranding consistent with abscess. There is extension of air focus into anterior medial right thigh muscle axial image 100. There is no obvious involvement of the penile sha ft which is superior and medial to this.. There is no obvious scrotal involvement. IMPRESSION: Inflammatory change and moderate-size focal abscess in the medial right thigh with inflam matory change or involvement of an anterior medial right thigh muscle. [facility], , 09/18/2024 7:43 AM
[2024-09-18] MEDS ORDERED: Potassium Replacement Protocol 1 EACH MISC MISCELLANE PRN (07:49)
[2024-09-18] MEDS ORDERED: Magnesium Replacement Protocol 1 EACH MISC MISCELLANE PRN (07:49)
[2024-09-18] MEDS ORDERED: DEXTROSE 50% SYRINGE 50 ML IVP PRN ×2 (07:49)
[2024-09-18] MEDS: LACTATED RINGERS 1,000 ML IV SCH (07:51)
[2024-09-18] MEDS: VANCOMYCIN 1,250 MG in SODIUM CHLORIDE 0.9% 250 ML IVPB ONE (07:52)
[2024-09-18 07:58] LABS: Glucose,Whole Blood 276 mg/dL (70-110)
[2024-09-18] MEDS ORDERED: NALOXONE 0.4 MG/ML 1 ML VIAL IV PRN (08:11)
[2024-09-18] MEDS ORDERED: ACETAMINOPHEN TAB 325 MG TAB PO PRN (08:11)
[2024-09-18] MEDS ORDERED: ONDANSETRON 4 MG/2 ML VIAL IVP PRN (08:11)
[2024-09-18 08:12] LABS: VBG PH 7.12 (7.31-7.41)
[2024-09-18] MEDS: ENOXAPARIN 40 MG/0.4 ML SYRINGE SQ SCH (09:14)
[2024-09-18] MEDS: metroNIDAZOLE-NS PMX 500 MG in SALINE 1 100ML.BAG IVPB SCH (09:22)
[2024-09-18] MEDS: SODIUM CHLORIDE 0.9% 1,000 ML IV SCH (09:28)
[2024-09-18] MEDS: D5-0.45% NACL WITH KCL 20MEQ/L 1,000 ML IV SCH (09:50)
[2024-09-18] MEDS: INSULIN REGULAR 100 UNIT in SODIUM CHLORIDE 0.9% 100 ML IV SCH (09:51)
[2024-09-18 09:57] LABS: Glucose,Whole Blood 226 mg/dL (70-110)
[2024-09-18] MEDS: CEFEPIME 2 GM in SODIUM CHLORIDE 0.9% 100 ML IVPB SCH ×2 (10:24→18:22)
[2024-09-18 10:57] LABS: Glucose,Whole Blood 215 mg/dL (70-110)
[2024-09-18] MEDS: MORPHINE SULFATE 4 MG/ML SYRINGE IV PRN (11:03)
[2024-09-18 11:54] LABS: Glucose,Whole Blood 199 mg/dL (70-110)
[2024-09-18 12:08] LABS: African American GFR (CKD) >90 (>60 ml/min/1.73 sqM); Anion Gap 20 mmol/L; Blood Urea Nitrogen 15 mg/dL (9-20); Chloride 104 mmol/L (98-107); Glucose 203 mg/dL (74-99); Non-African American GFR(CKD) >90 (>60 ml/min/1.73 sqM); Potassium 3.9 mmol/L (3.5-5.1); Sodium 133 mmol/L (137-145)
[2024-09-18 12:11] LABS: Carbon Dioxide 9 mmol/L (22-30)
[2024-09-18 12:50] LABS: Glucose,Whole Blood 178 mg/dL (70-110)
--- NOTE | 2024-09-18 13:50 | P.GSCN ---
History of Present Illness Consult date: 09/18/24 History of present illness: CHIEF COMPLAINT: Right groin infection HISTORY OF PRESENT ILLNESS: This is a 54-year-old male who presents the hospital with a right groin infection. He does have a history of MRSA. Patient noted redness and swelling in the right inner thigh 4 days ago. Patient has a history of diabetes. He reports his hemoglobin A1c was 13. CT scan abdomen pelvis reported inflammatory change and moderate size focal abscess in the medial right thigh with inflammatory change. Surgical service consulted for right thigh abscess PAST MEDICAL HISTORY: Diabetes mellitus, history of MRSA PAST SURGICAL HISTORY: See below MEDICATIONS: See below ALLERGIES: See below SOCIAL HISTORY: No illicit drug use. Nicotine dependence. Marijuana use. REVIEW OF SYSTEMS: CONSTITUTIONAL: Denies fever or chills. HEENT: Denies blurred vision, vision changes, or eye pain. Denies hemoptysis CARDIOVASCULAR: Denies chest pain or pressure. RESPIRATORY: No shortness of breath. GASTROINTESTINAL: See HPI for pertinent findings HEMATOLOGIC: Denies bleeding disorders. GENITOURINARY: Denies any blood in urine or increased urinary frequency. SKIN: Denies pruitis. Denies rash. PHYSICAL EXAM: VITAL SIGNS: Reviewed GENERAL: Well-developed in no acute distress. HEENT: No sclera icterus. Extraocular movements grossly intact. Moist buccal mucosa. Head is atraumatic, normocephalic. No nasal drainage. ABDOMEN: Soft. Nondistended. Nontender NEUROLOGIC: Alert and oriented. Cranial nerves II through XII grossly intact. SKIN: Right groin and upper right thigh erythema, swelling, induration and evidence of fluctuance. No drainage noted. LABORATORY DATA: WBC 22.1 Hgb 15.9 platelets 347 Sodium 133 potassium 3.9 creatinine 0.72 Lactic acid 1.6 IMAGING: CT scan pelvis as stated above ASSESSMENT: 1. Right groin/upper thigh abscess 2. Diabetes mellitus PLAN: -Patient is status post bedside incision and drainage of right groin abscess with Dr. Gonzalez -Cultures obtained -Continue antibiotics -Agree with infectious disease consult -Recommend tight blood sugar control -Consistent carbohydrate diet ordered Physician Geodetic Advisor note has been reviewed by physician. Signing provider agrees with the documented findings, assessment, and plan of care. Past Medical History Past Medical History: Diabetes Mellitus Additional Past Medical History / Comment(s): staph infection History of Any Multi-Drug Resistant Organisms: MRSA Year Discovered:: 06/21/24 MDRO Source:: rt hand, bilat lower leg Past Surgical History: No Surgical Hx Reported Past Psychological History: No Psychological Hx Reported Smoking Status: Current every day smoker Past Alcohol Use History: Occasional Past Drug Use History: Marijuana Medications and Allergies Home Medications Medication Instructions Recorded Confirmed Type metFORMIN HCL 1,000 mg PO BID #60 tablet 06/24/24 09/18/24 Rx Dapagliflozin Propanediol [Farxiga] 10 mg PO DAILY 09/18/24 09/18/24 History Allergies Allergy/AdvReac Type Severity Reaction Status Date / Time Sulfa (Sulfonamide Allergy Rash/Hives Verified 09/18/24 08:43 Antibiotics) Surgical - Exam Vital Signs Temp Pulse Resp BP Pulse Ox 97.2 F L 126 H 16 170/105 100 09/18/24 05:14 09/18/24 05:14 09/18/24 05:14 09/18/24 05:14 09/18/24 05:14 Results - Labs 09/18/24 06:27 09/18/24 11:34 Abnormal Lab Results - Last 24 Hours (Table) 09/18/24 09/18/24 09/18/24 Range/Units 06:27 06:27 06:27 WBC 22.1 H (3.8-10.6) k/uL Neutrophils # 19.7 H (1.3-7.7) k/uL VBG pH (7.31-7.41) VBG pCO2 (37-51) mmHg VBG HCO3 (24-28) mmol/L Sodium 132 L (137-145) mmol/L Carbon Dioxide <5 L* (22-30) mmol/L Glucose 243 H (74-99) mg/dL POC Glucose (mg/dL) (70-110) mg/dL C-Reactive Protein 36.6 H (<1.0) mg/dL 09/18/24 09/18/24 09/18/24 Range/Units 07:37 07:57 09:48 WBC (3.8-10.6) k/uL Neutrophils # (1.3-7.7) k/uL VBG pH 7.12 L* (7.31-7.41) VBG pCO2 23 L (37-51) mmHg VBG HCO3 8 L* (24-28) mmol/L Sodium (137-145) mmol/L Carbon Dioxide (22-30) mmol/L Glucose (74-99) mg/dL POC Glucose (mg/dL) 276 H 226 H (70-110) mg/dL C-Reactive Protein (<1.0) mg/dL 09/18/24 Range/Units 10:56 WBC (3.8-10.6) k/uL Neutrophils # (1.3-7.7) k/uL VBG pH (7.31-7.41) VBG pCO2 (37-51) mmHg VBG HCO3 (24-28) mmol/L Sodium (137-145) mmol/L Carbon Dioxide (22-30) mmol/L Glucose (74-99) mg/dL POC Glucose (mg/dL) 215 H (70-110) mg/dL C-Reactive Protein (<1.0) mg/dL Diabetes panel 09/18/24 Range/Units 06:27 Sodium 132 L (137-145) mmol/L Potassium 4.6 (3.5-5.1) mmol/L Chloride 99 (98-107) mmol/L Carbon Dioxide <5 L* (22-30) mmol/L BUN 15 (9-20) mg/dL Creatinine 0.84 (0.66-1.25) mg/dL Glucose 243 H (74-99) mg/dL Calcium 9.1 (8.4-10.2) mg/dL AST 20 (17-59) U/L ALT 19 (4-49) U/L Alkaline Phosphatase 88 (38-126) U/L Total Protein 7.4 (6.3-8.2) g/dL Albumin 4.2 (3.5-5.0) g/dL Calcium panel 09/18/24 Range/Units 06:27 Calcium 9.1 (8.4-10.2) mg/dL Albumin 4.2 (3.5-5.0) g/dL Pituitary panel 09/18/24 Range/Units 06:27 Sodium 132 L (137-145) mmol/L Potassium 4.6 (3.5-5.1) mmol/L Chloride 99 (98-107) mmol/L Carbon Dioxide <5 L* (22-30) mmol/L BUN 15 (9-20) mg/dL Creatinine 0.84 (0.66-1.25) mg/dL Glucose 243 H (74-99) mg/dL Calcium 9.1 (8.4-10.2) mg/dL Adrenal panel 09/18/24 Range/Units 06:27 Sodium 132 L (137-145) mmol/L Potassium 4.6 (3.5-5.1) mmol/L Chloride 99 (98-107) mmol/L Carbon Dioxide <5 L* (22-30) mmol/L BUN 15 (9-20) mg/dL Creatinine 0.84 (0.66-1.25) mg/dL Glucose 243 H (74-99) mg/dL Calcium 9.1 (8.4-10.2) mg/dL Total Bilirubin 0.6 (0.2-1.3) mg/dL AST 20 (17-59) U/L ALT 19 (4-49) U/L Alkaline Phosphatase 88 (38-126) U/L Total Protein 7.4 (6.3-8.2) g/dL Albumin 4.2 (3.5-5.0) g/dL
[2024-09-18 13:56] LABS: Glucose,Whole Blood 147 mg/dL (70-110)
[2024-09-18 14:52] LABS: Glucose,Whole Blood 150 mg/dL (70-110)
[2024-09-18 14:54] LABS: Appearance,Urine Clear (Clear); Bilirubin,Urine Negative (Negative); Blood,Urine Trace (Negative); Color,Urine Colorless; Glucose,Urine (UA) 4+ (Negative); Leukocyte Esterase,Urine Negative (Negative); Nitrite,Urine Negative (Negative); PH, Urine 5.5 (5.0-8.0); Protein,Urine 1+ (Negative); RBC,Urine 1 /hpf (0-5); Specific Gravity,Urine 1.025 (1.001-1.035); Urobilinogen,Urine <2.0 mg/dL (<2.0)
--- NOTE | 2024-09-18 15:12 | P.HPIM ---
History of Present Illness H&P Date: 09/18/24 Patient is a 54-year-old male with history of type 2 diabetes presenting with right thigh pain. He claims that he started noticing swelling on his right inner thigh about 4 days ago which has since persistently getting bigger and more tender. He denies any fevers or chills. His oral intake has been pretty poor since then. He is also feeling extremely thirsty, has not taken his insuli n for over 2 weeks because of insurance issues. He denies any chest pain, shortness of breath, abdominal pain, did have episode of vomiting, denies any urinary or bowel complaints. He smokes 1 pack/day, no significant alcohol use, uses marijuana. In the ED, temperature was 97.2, pulse 126, blood pressure 170/105, respiratory rate 16, saturating at 100% on room air. WBC 22.1, hemoglobin 15.9, pH 7.12, pCO2 23, bicarb 8, sodium 132, creatinine 0.84, blood sugar 276, A1c 8.4, lactate 1.6, positive acetone, CRP 36.6. Pelvis CT showed moderate size focal abscess in the medial right thigh with inflammatory change or involvement of anterior medial right thigh muscle. EKG independently interpreted, shows sinus tachycardia and nonspecific ST-T wave changes. Patient was started on broad-spectrum antibiotics. Surgery and ID consulted. Pertinent positives and negatives as discussed in HPI, a complete review of systems was performed and all other systems are negative. Patient seen and examined at bedside. Vital signs reviewed General: nontoxic, no distress, appears at stated age Derm: warm, dry, right medial thigh fluctuant mass with surrounding erythema and tenderness to palpation Head: atraumatic, normocephalic, symmetric Eyes: EOMI, no lid lag, anicteric sclera, pupils equal round reactive to light ENT: Nose and ears atraumatic Neck: No thyromegaly, supple Mouth: no lip lesion, mucus membranes dry Cardiovascular: S1S2 reg, tachycardic, no murmur, no edema Lungs: clear to auscultation bilateral, no rhonchi, no rales, no wheeze, no accessory muscle use Abdominal: soft, nontender to palpation, no guarding, no appreciable organomegaly Ext: no gross muscle atrophy, muscle strength muscle strength 5 out of 5 in all 4 extremities, no contractures Neuro: CN II-XII grossly intact Psych: Alert, oriented, appropriate affect Assessment/Plan: Severe sepsis secondary to right thigh abscess -Blood cultures pending -Surgery note reviewed, did bedside I&D, tissue cultures pending -ID consulted -Patient continued on IV vancomycin 1.25 g every 8 hours, monitor for renal to xicity -Also on IV cefepime 2 g every 8 hours, IV Flagyl 500 IV every 8 hours -Pain control with oral Tylenol 650 every 6 hours IV morphine 4 mg every 4 hours as needed for severe pain monitor for sedation Euglycemic DKA History of type 2 diabetes, A1c 8.4 Hypovolemic hyponatremia Dehydration -Triggered by severe sepsis -On insulin drip, monitor blood sugars every hours -Continue to monitor BMP every 4 hours -Continue IV fluids, currently on 200 cc an hour normal saline, will switch to D5 half-normal saline once blood glucose is in range -Patient started on consistent carbohydrate diet, p.o. intake as tolerated -Zofran 4 mg IV every hour as needed -Discontinue SGLT2 inhibitor, hold metformin The patient is admitted with an anticipated greater than 2 midnight stay as inpatient status for evaluation of DKA and severe sepsis. Surrogate decision-maker: Sibling CODE STATUS: Full code DVT prophylaxis: Lovenox Anticipated discharge date: Pending clinical course Anticipated discharge place: Pending clinical course A total of 65 minutes was spent on the care of this complex patient more than 50% of the time was spent in counseling and care coordination. Patient was seen at 8 AM this morning. Charting delayed. Past Medical History Past Medical History: Diabetes Mellitus Additional Past Medical History / Comment(s): staph infection History of Any Multi-Drug Resistant Organisms: MRSA Date of last positivie culture/infection: 06/21/24 MDRO Source:: rt hand, bilat lower leg Past Surgical History: No Surgical Hx Reported Past Psychological History: No Psychological Hx Reported Smoking Status: Current every day smoker Past Alcohol Use History: Occasional Past Drug Use History: Marijuana Medications and Allergies Home Medications Medication Instructions Recorded Confirmed Type metFORMIN HCL 1,000 mg PO BID #60 tablet 06/24/24 09/18/24 Rx Dapagliflozin Propanediol [Farxiga] 10 mg PO DAILY 09/18/24 09/18/24 History Allergies Allergy/AdvReac Type Severity Reaction Status Date / Time Sulfa (Sulfonamide Allergy Rash/Hives Verified 09/18/24 08:43 Antibiotics) Physical Exam Vitals: Vital Signs Temp Pulse Resp BP Pulse Ox 09/18/24 14:51 96 18 143/83 99 09/18/24 11:00 105 H 18 140/78 98 09/18/24 09:26 101 H 20 159/89 97 09/18/24 08:17 98.7 F 106 H 24 154/54 99 09/18/24 05:14 97.2 F L 126 H 16 170/105 100 Intake and Output 09/18/24 09/18/24 09/18/24 06:59 14:59 22:59 Intake Total 35.564 Balance 35.564 Intake: Intake, IV Titration 35.564 Amount Insulin Regular 100 unit 35.564 In Sodium Chloride 0.9% 100 ml @ 0.1 UNITS/KG/HR 7.788 mls/hr IV .[id number] [facility] Rx#:[id number] Other: Weight 77.111 kg Results CBC & Chem 7: 09/18/24 06:27 09/18/24 11:34 Labs: Abnormal Lab Results - Last 24 Hours (Table) 09/18/24 09/18/24 09/18/24 Range/Units 06:27 06:27 06:27 WBC 22.1 H (3.8-10.6) k/uL Neutrophils # 19.7 H (1.3-7.7) k/uL VBG pH (7.31-7.41) VBG pCO2 (37-51) mmHg VBG HCO3 (24-28) mmol/L Sodium 132 L (137-145) mmol/L Carbon Dioxide <5 L* (22-30) mmol/L Glucose 243 H (74-99) mg/dL POC Glucose (mg/dL) (70-110) mg/dL Hemoglobin A1c (<=6.0) % C-Reactive Protein 36.6 H (<1.0) mg/dL 09/18/24 09/18/24 09/18/24 Range/Units 06:27 07:37 07:57 WBC (3.8-10.6) k/uL Neutrophils # (1.3-7.7) k/uL VBG pH 7.12 L* (7.31-7.41) VBG pCO2 23 L (37-51) mmHg VBG HCO3 8 L* (24-28) mmol/L Sodium (137-145) mmol/L Carbon Dioxide (22-30) mmol/L Glucose (74-99) mg/dL POC Glucose (mg/dL) 276 H (70-110) mg/dL Hemoglobin A1c 8.4 H (<=6.0) % C-Reactive Protein (<1.0) mg/dL 09/18/24 09/18/24 09/18/24 Range/Units 09:48 10:56 11:34 WBC (3.8-10.6) k/uL Neutrophils # (1.3-7.7) k/uL VBG pH (7.31-7.41) VBG pCO2 (37-51) mmHg VBG HCO3 (24-28) mmol/L Sodium 133 L (137-145) mmol/L Carbon Dioxide 9 L* (22-30) mmol/L Glucose 203 H (74-99) mg/dL POC Glucose (mg/dL) 226 H 215 H (70-110) mg/dL Hemoglobin A1c (<=6.0) % C-Reactive Protein (<1.0) mg/dL 09/18/24 09/18/24 09/18/24 Range/Units 11:52 12:48 13:54 WBC (3.8-10.6) k/uL Neutrophils # (1.3-7.7) k/uL VBG pH (7.31-7.41) VBG pCO2 (37-51) mmHg VBG HCO3 (24-28) mmol/L Sodium (137-145) mmol/L Carbon Dioxide (22-30) mmol/L Glucose (74-99) mg/dL POC Glucose (mg/dL) 199 H 178 H 147 H (70-110) mg/dL Hemoglobin A1c (<=6.0) % C-Reactive Protein (<1.0) mg/dL 09/18/24 Range/Units 14:50 WBC (3.8-10.6) k/uL Neutrophils # (1.3-7.7) k/uL VBG pH (7.31-7.41) VBG pCO2 (37-51) mmHg VBG HCO3 (24-28) mmol/L Sodium (137-145) mmol/L Carbon Dioxide (22-30) mmol/L Glucose (74-99) mg/dL POC Glucose (mg/dL) 150 H (70-110) mg/dL Hemoglobin A1c (<=6.0) % C-Reactive Protein (<1.0) mg/dL
[2024-09-18 15:13] LABS: Ketones,Urine 4+ (Negative)
[2024-09-18 15:59] LABS: Glucose,Whole Blood 140 mg/dL (70-110)
--- NOTE | 2024-09-18 16:05 | P.OP ---
Date of Procedure: 09/18/24 Preoperative Diagnosis: Right thigh abscess Postoperative Diagnosis: right thigh abscess Procedure(s) Performed: incision and drainage of right thigh abscess Anesthesia: local Surgeon: Curt Gonzalez Estimated Blood Loss (ml): 5 Pathology: other (culture of wound) Condition: stable Disposition: floor Description of Procedure: the patient was placed on his bed in the supine position. His right medial thigh was prepped in AP sterile fashion. The skin was anesthetized 1% local Xylocaine. Using 1 blade the skin incised. Approximately 20 cc of purulent fluid was removed. The wound was cultured. The wound was then packed with Kerlix. Patient tolerated well.
[2024-09-18] MEDS: VANCOMYCIN 1,250 MG in SODIUM CHLORIDE 0.9% 250 ML IVPB SCH (16:10)
[2024-09-18 16:25] LABS: African American GFR (CKD) >90 (>60 ml/min/1.73 sqM); Anion Gap 10 mmol/L; Blood Urea Nitrogen 13 mg/dL (9-20); Calcium 7.9 mg/dL (8.4-10.2); Carbon Dioxide 17 mmol/L (22-30); Chloride 103 mmol/L (98-107); Glucose 149 mg/dL (74-99); Non-African American GFR(CKD) >90 (>60 ml/min/1.73 sqM); Potassium 3.9 mmol/L (3.5-5.1); Sodium 130 mmol/L (137-145)
[2024-09-18 17:16] LABS: Glucose,Whole Blood 146 mg/dL (70-110)
[2024-09-18 18:11] LABS: Glucose,Whole Blood 151 mg/dL (70-110)
[2024-09-18 19:06] LABS: Glucose,Whole Blood 150 mg/dL (70-110)
[2024-09-18 20:41] LABS: Glucose,Whole Blood 170 mg/dL (70-110)
[2024-09-18 20:51] LABS: African American GFR (CKD) >90 (>60 ml/min/1.73 sqM); Anion Gap 9 mmol/L; Blood Urea Nitrogen 12 mg/dL (9-20); Calcium 7.8 mg/dL (8.4-10.2); Carbon Dioxide 18 mmol/L (22-30); Chloride 103 mmol/L (98-107); Glucose 169 mg/dL (74-99); Non-African American GFR(CKD) >90 (>60 ml/min/1.73 sqM); Potassium 3.9 mmol/L (3.5-5.1); Sodium 130 mmol/L (137-145)
[2024-09-18 21:12] LABS: Glucose,Whole Blood 159 mg/dL (70-110)
[2024-09-18 22:09] LABS: Glucose,Whole Blood 222 mg/dL (70-110)
[2024-09-18 23:10] LABS: Glucose,Whole Blood 222 mg/dL (70-110)
--- NOTE | 2024-09-18 23:16 | P.CONS ---
History of Present Illness - Reason for Consult Consult date: 09/18/24 Right thigh abscess Requesting physician: Lai Shanks - Chief Complaint Right upper thigh pain swelling and redness x days - History of Present Illness Patient is a 54-year-old male with a past medical history difficult for diabetes mellitus skin and soft tissue infection presenting to the hospital for evaluation of right groin/upper thigh area pain swelling redness patient mention it started as a small pimple that he noticed on Sunday that is about 4 d ays before presentation to hospital that has progressed to get worse patient mention he did squeeze it a small amount of pus came out subsequent noticed to have worsening pain and swelling and redness with right upper thigh area patient is currently the pain to be sharp almost 10 out of 10 severity when he came in patient denies having any high-grade fever or any chills on presentation to the hospital patient was afebrile he was tachycardic but not hypotensive or hypoxic patient did have a white count of 22.1 creatinine 0.59 liver isms are normal urine negative patient did have a bedside I&D of this abscess culture have been obtained he was started on vancomycin and cefepime infectious disease was consulted for further management of antibiotic therapy Review of Systems Positive point and negatives has been mentioned in the HPI, complete review of systems was performed and all other systems are negative Past Medical History Past Medical History: Diabetes Mellitus Additional Past Medical History / Comment(s): staph infection History of Any Multi-Drug Resistant Organisms: MRSA Year Discovered:: 06/21/24 MDRO Source:: rt hand, bilat lower leg Past Surgical History: No Surgical Hx Reported Past Psychological History: No Psychological Hx Reported Smoking Status: Current every day smoker Past Alcohol Use History: Occasional Past Drug Use History: Marijuana - Past Family History Father Family Medical History: No Reported History Medications and Allergies Home Medications Medication Instructions Recorded Confirmed Type metFORMIN HCL 1,000 mg PO BID #60 tablet 06/24/24 09/18/24 Rx Dapagliflozin Propanediol [Farxiga] 10 mg PO DAILY 09/18/24 09/18/24 History Allergies Allergy/AdvReac Type Severity Reaction Status Date / Time Sulfa (Sulfonamide Allergy Rash/Hives Verified 09/18/24 08:43 Antibiotics) Physical Exam Vitals: Vital Signs Temp Pulse Resp BP Pulse Ox 09/18/24 11:00 105 H 18 140/78 98 09/18/24 09:26 101 H 20 159/89 97 09/18/24 08:17 98.7 F 106 H 24 154/54 99 09/18/24 05:14 97.2 F L 126 H 16 170/105 100 Intake and Output 09/17/24 09/18/24 09/18/24 22:59 06:59 14:59 Intake Total 7.658 Balance 7.658 Intake: Intake, IV Titration 7.658 Amount Insulin Regular 100 unit 7.658 In Sodium Chloride 0.9% 100 ml @ 0.1 UNITS/KG/HR 7.788 mls/hr IV .[id number] [facility] Rx#:[id number] Other: Weight 77.111 kg GENERAL DESCRIPTION: Manage male lying in bed, no distress. No tachypnea or accessory muscle of respiration use. HEENT: Shows Pallor , no scleral icterus. Oral mucous membrane is dry. No pharyngeal erythema or thrush NECK: Trachea central, no thyromegaly. LUNGS: Unlabored breathing. Clear to auscultation anteriorly. No wheeze or crackle. HEART: S1, S2, regular rate and rhythm. No loud murmur ABDOMEN: Soft, no tenderness , guarding or rigidity, no organomegaly EXTREMITIES: Right upper medial thigh did have an area of induration swelling and redness SKIN: No rash, no masses palpable. NEUROLOGICAL: The patient is awake, alert, oriented x3, mood and affect normal. Results CBC & Chem 7: 09/18/24 06:27 09/18/24 20:01 Labs: Abnormal Lab Results - Last 24 Hours (Table) 09/18/24 09/18/24 09/18/24 Range/Units 06:27 06:27 06:27 WBC 22.1 H (3.8-10.6) k/uL Neutrophils # 19.7 H (1.3-7.7) k/uL VBG pH (7.31-7.41) VBG pCO2 (37-51) mmHg VBG HCO3 (24-28) mmol/L Sodium 132 L (137-145) mmol/L Carbon Dioxide <5 L* (22-30) mmol/L Glucose 243 H (74-99) mg/dL POC Glucose (mg/dL) (70-110) mg/dL C-Reactive Protein 36.6 H (<1.0) mg/dL 09/18/24 09/18/24 09/18/24 Range/Units 07:37 07:57 09:48 WBC (3.8-10.6) k/uL Neutrophils # (1.3-7.7) k/uL VBG pH 7.12 L* (7.31-7.41) VBG pCO2 23 L (37-51) mmHg VBG HCO3 8 L* (24-28) mmol/L Sodium (137-145) mmol/L Carbon Dioxide (22-30) mmol/L Glucose (74-99) mg/dL POC Glucose (mg/dL) 276 H 226 H (70-110) mg/dL C-Reactive Protein (<1.0) mg/dL 09/18/24 Range/Units 10:56 WBC (3.8-10.6) k/uL Neutrophils # (1.3-7.7) k/uL VBG pH (7.31-7.41) VBG pCO2 (37-51) mmHg VBG HCO3 (24-28) mmol/L Sodium (137-145) mmol/L Carbon Dioxide (22-30) mmol/L Glucose (74-99) mg/dL POC Glucose (mg/dL) 215 H (70-110) mg/dL C-Reactive Protein (<1.0) mg/dL Assessment and Plan (1) Abscess of right thigh Current Visit: Yes Status: Acute Code(s): L02.415 - CUTANEOUS ABSCESS OF RIGHT LOWER LIMB SNOMED Code(s): [id number] Plan: 1patient presented to hospital increasing pain swelling redness to right upper thigh area with developing apparent abscess likely from gram-positive skin tim in this patient did have a history of MRSA likely related to MRSA 2-sulfa allergy that will limit the number of antibiotics safe to use 3-vancomycin pharmacy to dose target trough of 15 while watching kidney function and Vanco trough closely We will follow on clinical condition and cultures to further adjust medication if needed Thank you for this consultation we will follow the patient along with you Dictation was produced using [employer] dictation software. please excuse any gram matical, word or spelling errors. Time with Patient: Greater than 30
[2024-09-19 00:18] LABS: Glucose,Whole Blood 219 mg/dL (70-110)
[2024-09-19 01:04] LABS: African American GFR (CKD) >90 (>60 ml/min/1.73 sqM); Anion Gap 11 mmol/L; Blood Urea Nitrogen 11 mg/dL (9-20); Carbon Dioxide 15 mmol/L (22-30); Chloride 103 mmol/L (98-107); Glucose 203 mg/dL (74-99); Non-African American GFR(CKD) >90 (>60 ml/min/1.73 sqM); Sodium 129 mmol/L (137-145)
[2024-09-19 01:16] LABS: Glucose,Whole Blood 202 mg/dL (70-110)
[2024-09-19 02:11] LABS: Glucose,Whole Blood 219 mg/dL (70-110)
[2024-09-19 03:29] LABS: Glucose,Whole Blood 246 mg/dL (70-110)
[2024-09-19 04:45] LABS: Glucose,Whole Blood 220 mg/dL (70-110)
[2024-09-19 05:37] LABS: Glucose,Whole Blood 226 mg/dL (70-110)
[2024-09-19 06:28] LABS: Glucose,Whole Blood 215 mg/dL (70-110)
[2024-09-19 07:19] LABS: Glucose,Whole Blood 241 mg/dL (70-110)
[2024-09-19 07:48] LABS: Basophils % (A) 0 %; Eosinophils # (A) 0.1 k/uL (0-0.7); Eosinophils % (A) 1 %; HCT 42.5 % (39.0-53.0); HGB 13.4 gm/dL (13.0-17.5); Hypochromasia Slight; Lymphocytes # (A) 1.2 k/uL (1.0-4.8); Lymphocytes % (A) 8 %; MCH 29.6 pg (25.0-35.0); MCHC 31.6 g/dL (31.0-37.0); MCV 93.7 fL (80.0-100.0); Mean Platelet Volume 7.2; Monocytes % (A) 7 %; Neutrophils # (A) 12.2 k/uL (1.3-7.7); Neutrophils % (A) 83 %; Platelet Count 324 k/uL (150-450); RBC 4.53 m/uL (4.30-5.90); RDW 13.9 % (11.5-15.5); WBC 14.8 k/uL (3.8-10.6)
[2024-09-19 07:52] LABS: ALT 13 U/L (4-49); AST 12 U/L (17-59); African American GFR (CKD) >90 (>60 ml/min/1.73 sqM); Albumin 2.9 g/dL (3.5-5.0); Alkaline Phosphatase 73 U/L (38-126); Anion Gap 9 mmol/L; Blood Urea Nitrogen 10 mg/dL (9-20); Calcium 7.6 mg/dL (8.4-10.2); Carbon Dioxide 19 mmol/L (22-30); Chloride 101 mmol/L (98-107); Glucose 249 mg/dL (74-99); Non-African American GFR(CKD) >90 (>60 ml/min/1.73 sqM); Potassium 3.7 mmol/L (3.5-5.1); Sodium 129 mmol/L (137-145); Total Bilirubin 0.4 mg/dL (0.2-1.3); Total Protein 5.4 g/dL (6.3-8.2)
[2024-09-19 09:03] LABS: Glucose,Whole Blood 271 mg/dL (70-110)
[2024-09-19 10:29] LABS: Glucose,Whole Blood 268 mg/dL (70-110)
[2024-09-19 11:19] LABS: Glucose,Whole Blood 244 mg/dL (70-110)
[2024-09-19 12:29] LABS: Glucose,Whole Blood 240 mg/dL (70-110)
[2024-09-19] MEDS ORDERED: HYDROcodone/APAP 5-325MG 1 EACH TAB PO PRN (13:32)
--- NOTE | 2024-09-19 13:33 | P.PN ---
Subjective Progress Note Date: 09/19/24 SURGICAL PROGRESS NOTE CHIEF COMPLAINT: Right thigh abscess HISTORY OF PRESENT ILLNESS: Patient is postop day #1 status post incision and drainage of right thigh abscess. Patient continues to have drainage from the abscess. He reports decrease in pain. Afebrile. WBC is down from 22-14.8. Wound culture pending Patient seen and examined with Dr. Gonzalez PHYSICAL EXAM: VITAL SIGNS: Reviewed. GENERAL: Well-developed in no acute distress. ABDOMEN: Soft. Nondistended. Nontender. ASSESSMENT: 1. Right thigh abscess status post bedside incision and drainage 2. Sepsis 3. DKA PLAN: -Continue local wound care. Change Kerlix packing to incision twice a day -Patient to shower today -Antibiotics per ID service -Continue pain management. [place] added for oral pain medication Physician Registered Nurse Supervisor note has been reviewed by physician. Signing provider agrees with the documented findings, assessment, and plan of care. Objective - Vital Signs Vital signs: Vital Signs Temp 97.6 F 09/19/24 05:47 Pulse 75 09/19/24 11:25 Resp 14 09/19/24 11:25 BP 118/79 09/19/24 11:25 Pulse Ox 99 09/19/24 11:25 FiO2 Intake & Output 09/18/24 09/19/24 09/19/24 18:59 06:59 18:59 Intake Total 42.703 1.574 6.6 Output Total 2400 Balance 42.703 -2398.426 6.6 Weight 77.111 kg Intake: Intake, IV Titration 42.703 1.574 6.6 Amount Insulin Regular 100 unit 42.703 1.574 6.6 In Sodium Chloride 0.9% 100 ml @ 0.1 UNITS/KG/HR 7.788 mls/hr IV .[id number] Rx#:[id number] Output: Urine 2400 - Labs CBC & Chem 7: 09/19/24 06:58 09/19/24 06:58 Labs: Abnormal Lab Results - Last 24 Hours (Table) 09/18/24 09/18/24 09/18/24 Range/Units 06:27 11:56 13:54 WBC (3.8-10.6) k/uL Neutrophils # (1.3-7.7) k/uL Sodium (137-145) mmol/L Carbon Dioxide (22-30) mmol/L Creatinine (0.66-1.25) mg/dL Glucose (74-99) mg/dL POC Glucose (mg/dL) 147 H (70-110) mg/dL Hemoglobin A1c 8.4 H (<=6.0) % Calcium (8.4-10.2) mg/dL AST (17-59) U/L Total Protein (6.3-8.2) g/dL Albumin (3.5-5.0) g/dL Urine Protein 1+ H (Negative) Urine Glucose (UA) 4+ H (Negative) Urine Ketones 4+ H (Negative) Urine Blood Trace H (Negative) 09/18/24 09/18/24 09/18/24 Range/Units 14:50 15:57 16:05 WBC (3.8-10.6) k/uL Neutrophils # (1.3-7.7) k/uL Sodium 130 L (137-145) mmol/L Carbon Dioxide 17 L (22-30) mmol/L Creatinine 0.55 L (0.66-1.25) mg/dL Glucose 149 H (74-99) mg/dL POC Glucose (mg/dL) 150 H 140 H (70-110) mg/dL Hemoglobin A1c (<=6.0) % Calcium 7.9 L (8.4-10.2) mg/dL AST (17-59) U/L Total Protein (6.3-8.2) g/dL Albumin (3.5-5.0) g/dL Urine Protein (Negative) Urine Glucose (UA) (Negative) Urine Ketones (Negative) Urine Blood (Negative) 09/18/24 09/18/24 09/18/24 Range/Units 17:15 18:10 19:05 WBC (3.8-10.6) k/uL Neutrophils # (1.3-7.7) k/uL Sodium (137-145) mmol/L Carbon Dioxide (22-30) mmol/L Creatinine (0.66-1.25) mg/dL Glucose (74-99) mg/dL POC Glucose (mg/dL) 146 H 151 H 150 H (70-110) mg/dL Hemoglobin A1c (<=6.0) % Calcium (8.4-10.2) mg/dL AST (17-59) U/L Total Protein (6.3-8.2) g/dL Albumin (3.5-5.0) g/dL Urine Protein (Negative) Urine Glucose (UA) (Negative) Urine Ketones (Negative) Urine Blood (Negative) 09/18/24 09/18/24 09/18/24 Range/Units 20:01 20:30 21:10 WBC (3.8-10.6) k/uL Neutrophils # (1.3-7.7) k/uL Sodium 130 L (137-145) mmol/L Carbon Dioxide 18 L (22-30) mmol/L Creatinine 0.59 L (0.66-1.25) mg/dL Glucose 169 H (74-99) mg/dL POC Glucose (mg/dL) 170 H 159 H (70-110) mg/dL Hemoglobin A1c (<=6.0) % Calcium 7.8 L (8.4-10.2) mg/dL AST (17-59) U/L Total Protein (6.3-8.2) g/dL Albumin (3.5-5.0) g/dL Urine Protein (Negative) Urine Glucose (UA) (Negative) Urine Ketones (Negative) Urine Blood (Negative) 09/18/24 09/18/24 09/18/24 Range/Units 22:07 23:08 23:51 WBC (3.8-10.6) k/uL Neutrophils # (1.3-7.7) k/uL Sodium 129 L (137-145) mmol/L Carbon Dioxide 15 L (22-30) mmol/L Creatinine 0.55 L (0.66-1.25) mg/dL Glucose 203 H (74-99) mg/dL POC Glucose (mg/dL) 222 H 222 H (70-110) mg/dL Hemoglobin A1c (<=6.0) % Calcium 8.0 L (8.4-10.2) mg/dL AST (17-59) U/L Total Protein (6.3-8.2) g/dL Albumin (3.5-5.0) g/dL Urine Protein (Negative) Urine Glucose (UA) (Negative) Urine Ketones (Negative) Urine Blood (Negative) 09/19/24 09/19/24 09/19/24 Range/Units 00:17 01:14 02:09 WBC (3.8-10.6) k/uL Neutrophils # (1.3-7.7) k/uL Sodium (137-145) mmol/L Carbon Dioxide (22-30) mmol/L Creatinine (0.66-1.25) mg/dL Glucose (74-99) mg/dL POC Glucose (mg/dL) 219 H 202 H 219 H (70-110) mg/dL Hemoglobin A1c (<=6.0) % Calcium (8.4-10.2) mg/dL AST (17-59) U/L Total Protein (6.3-8.2) g/dL Albumin (3.5-5.0) g/dL Urine Protein (Negative) Urine Glucose (UA) (Negative) Urine Ketones (Negative) Urine Blood (Negative) 09/19/24 09/19/24 09/19/24 Range/Units 03:27 04:44 05:36 WBC (3.8-10.6) k/uL Neutrophils # (1.3-7.7) k/uL Sodium (137-145) mmol/L Carbon Dioxide (22-30) mmol/L Creatinine (0.66-1.25) mg/dL Glucose (74-99) mg/dL POC Glucose (mg/dL) 246 H 220 H 226 H (70-110) mg/dL Hemoglobin A1c (<=6.0) % Calcium (8.4-10.2) mg/dL AST (17-59) U/L Total Protein (6.3-8.2) g/dL Albumin (3.5-5.0) g/dL Urine Protein (Negative) Urine Glucose (UA) (Negative) Urine Ketones (Negative) Urine Blood (Negative) 09/19/24 09/19/24 09/19/24 Range/Units 06:26 06:58 06:58 WBC 14.8 H (3.8-10.6) k/uL Neutrophils # 12.2 H (1.3-7.7) k/uL Sodium 129 L (137-145) mmol/L Carbon Dioxide 19 L (22-30) mmol/L Creatinine 0.57 L (0.66-1.25) mg/dL Glucose 249 H (74-99) mg/dL POC Glucose (mg/dL) 215 H (70-110) mg/dL Hemoglobin A1c (<=6.0) % Calcium 7.6 L (8.4-10.2) mg/dL AST 12 L (17-59) U/L Total Protein 5.4 L (6.3-8.2) g/dL Albumin 2.9 L (3.5-5.0) g/dL Urine Protein (Negative) Urine Glucose (UA) (Negative) Urine Ketones (Negative) Urine Blood (Negative) 09/19/24 09/19/24 09/19/24 Range/Units 07:18 08:55 10:26 WBC (3.8-10.6) k/uL Neutrophils # (1.3-7.7) k/uL Sodium (137-145) mmol/L Carbon Dioxide (22-30) mmol/L Creatinine (0.66-1.25) mg/dL Glucose (74-99) mg/dL POC Glucose (mg/dL) 241 H 271 H 268 H (70-110) mg/dL Hemoglobin A1c (<=6.0) % Calcium (8.4-10.2) mg/dL AST (17-59) U/L Total Protein (6.3-8.2) g/dL Albumin (3.5-5.0) g/dL Urine Protein (Negative) Urine Glucose (UA) (Negative) Urine Ketones (Negative) Urine Blood (Negative) 09/19/24 09/19/24 Range/Units 11:13 12:28 WBC (3.8-10.6) k/uL Neutrophils # (1.3-7.7) k/uL Sodium (137-145) mmol/L Carbon Dioxide (22-30) mmol/L Creatinine (0.66-1.25) mg/dL Glucose (74-99) mg/dL POC Glucose (mg/dL) 244 H 240 H (70-110) mg/dL Hemoglobin A1c (<=6.0) % Calcium (8.4-10.2) mg/dL AST (17-59) U/L Total Protein (6.3-8.2) g/dL Albumin (3.5-5.0) g/dL Urine Protein (Negative) Urine Glucose (UA) (Negative) Urine Ketones (Negative) Urine Blood (Negative) Microbiology - Last 24 Hours (Table) 09/18/24 06:27 Blood Culture - Preliminary Blood 09/18/24 11:29 Gram Stain - Preliminary Groin Wound Culture - Preliminary
[2024-09-19 13:43] LABS: Glucose,Whole Blood 240 mg/dL (70-110)
--- NOTE | 2024-09-19 14:33 | P.PN ---
Subjective Progress Note Date: 09/19/24 Hospital Course: 54-year-old male with history of type 2 diabetes presenting with right thigh p ain. In the ED, temperature was 97.2, pulse 126, blood pressure 170/105, respiratory rate 16, saturating at 100% on room air. WBC 22.1, hemoglobin 15.9, pH 7.12, pCO2 23, bicarb 8, sodium 132, creatinine 0.84, blood sugar 276, A1c 8.4, lactate 1.6, positive acetone, CRP 36.6. Pelvis CT showed moderate size focal abscess in the medial right thigh with inflammatory change or involvement of anterior medial right wound packed muscle. EKG independently interpreted, shows sinus tachycardia and nonspecific ST-T wave changes. Patient was started on broad-spectrum antibiotics. Surgery and ID consulted. Underwent bedside I&D. On insulin drip, gap closing. On IV antibiotics. Subjective: Patient seen and examined at bedside. No acute events overnight. Claims that pain is improving. Pertinent positives and negatives as discussed above, a complete review of systems was performed and all other systems are negative. Vitals Signs Reviewed. General: Nontoxic, no distress, appears at stated age Derm: Warm, dry, right thigh wound is packed Head: Atraumatic, normocephalic, symmetric Eyes: EOMI, no lid lag, anicteric sclera Mouth: No lip lesion, mucus membranes moist Cardiovascular: S1S2 reg, no murmur Lungs: CTA bilateral, no rhonchi, no rales, no accessory muscle use Abdominal: Soft, nontender to palpation, no guarding, no appreciable organomegaly Ext: No gross muscle atrophy, no edema, no contractures Neuro: CN II-XI grossly intact, no focal neuro deficits Psych: Alert, oriented, appropriate affect Data Reviewed Today: Pertinent Labs: WBC 14.8, hemoglobin 13.4, sodium 129, creatinine 0.57, bicarb 19, anion gap 9, blood sugars in the 240s Imaging: No new imaging Assessment and Plan: Severe sepsis secondary to right thigh abscess -Blood cultures pending -Surgery note reviewed, did bedside I&D, tissue cultures pending -ID consulted -Patient continued on IV vancomycin 1.25 g every 8 hours, monitor for renal toxicity -Also on IV cefepime 2 g every 8 hours, IV Flagyl 500 IV every 8 hours -Pain control with oral Tylenol 650 every 6 hours, oral [place] 5 every 4 hours as needed, IV morphine 4 mg every 4 hours as needed for severe pain monitor for sedation Euglycemic DKA, resolved History of type 2 diabetes, A1c 8.4 Hypovolemic hyponatremia Metabolic acidosis Dehydration -Triggered by severe sepsis -Will transition to subcu insulin 23 units nightly, 8 units AC 3 times daily, sliding scale insulin, monitor for hypoglycemia -Transition IV fluids to lactated Ringer's at 130 cc an hour -Patient is able to eat, encourage oral intake on consistent carbohydrate diet -Zofran 4 mg IV every hour as needed -Discontinue SGLT2 inhibitor, hold metformin DVT ppx: Lovenox Code status: Full code Anticipated discharge place: Pending clinical course Anticipated discharge time: Pending clinical course Objective - Vital Signs Vital signs: Vital Signs Temp 98.0 F 09/19/24 13:55 Pulse 81 09/19/24 13:55 Resp 12 09/19/24 13:55 BP 123/78 09/19/24 13:55 Pulse Ox 99 09/19/24 13:55 FiO2 Intake & Output 09/18/24 09/19/24 09/19/24 18:59 06:59 18:59 Intake Total 42.703 1.574 6.6 Output Total 2400 Balance 42.703 -2398.426 6.6 Weight 77.111 kg Intake: Intake, IV Titration 42.703 1.574 6.6 Amount Insulin Regular 100 unit 42.703 1.574 6.6 In Sodium Chloride 0.9% 100 ml @ 0.1 UNITS/KG/HR 7.788 mls/hr IV .[id number] [facility] Rx#:[id number] Output: Urine 2400 - Labs CBC & Chem 7: 09/19/24 06:58 09/19/24 06:58 Labs: Abnormal Lab Results - Last 24 Hours (Table) 09/18/24 09/18/24 09/18/24 Range/Units 06:27 11:56 14:50 WBC (3.8-10.6) k/uL Neutrophils # (1.3-7.7) k/uL Sodium (137-145) mmol/L Carbon Dioxide (22-30) mmol/L Creatinine (0.66-1.25) mg/dL Glucose (74-99) mg/dL POC Glucose (mg/dL) 150 H (70-110) mg/dL Hemoglobin A1c 8.4 H (<=6.0) % Calcium (8.4-10.2) mg/dL AST (17-59) U/L Total Protein (6.3-8.2) g/dL Albumin (3.5-5.0) g/dL Urine Protein 1+ H (Negative) Urine Glucose (UA) 4+ H (Negative) Urine Ketones 4+ H (Negative) Urine Blood Trace H (Negative) 09/18/24 09/18/24 09/18/24 Range/Units 15:57 16:05 17:15 WBC (3.8-10.6) k/uL Neutrophils # (1.3-7.7) k/uL Sodium 130 L (137-145) mmol/L Carbon Dioxide 17 L (22-30) mmol/L Creatinine 0.55 L (0.66-1.25) mg/dL Glucose 149 H (74-99) mg/dL POC Glucose (mg/dL) 140 H 146 H (70-110) mg/dL Hemoglobin A1c (<=6.0) % Calcium 7.9 L (8.4-10.2) mg/dL AST (17-59) U/L Total Protein (6.3-8.2) g/dL Albumin (3.5-5.0) g/dL Urine Protein (Negative) Urine Glucose (UA) (Negative) Urine Ketones (Negative) Urine Blood (Negative) 09/18/24 09/18/24 09/18/24 Range/Units 18:10 19:05 20:01 WBC (3.8-10.6) k/uL Neutrophils # (1.3-7.7) k/uL Sodium 130 L (137-145) mmol/L Carbon Dioxide 18 L (22-30) mmol/L Creatinine 0.59 L (0.66-1.25) mg/dL Glucose 169 H (74-99) mg/dL POC Glucose (mg/dL) 151 H 150 H (70-110) mg/dL Hemoglobin A1c (<=6.0) % Calcium 7.8 L (8.4-10.2) mg/dL AST (17-59) U/L Total Protein (6.3-8.2) g/dL Albumin (3.5-5.0) g/dL Urine Protein (Negative) Urine Glucose (UA) (Negative) Urine Ketones (Negative) Urine Blood (Negative) 09/18/24 09/18/24 09/18/24 Range/Units 20:30 21:10 22:07 WBC (3.8-10.6) k/uL Neutrophils # (1.3-7.7) k/uL Sodium (137-145) mmol/L Carbon Dioxide (22-30) mmol/L Creatinine (0.66-1.25) mg/dL Glucose (74-99) mg/dL POC Glucose (mg/dL) 170 H 159 H 222 H (70-110) mg/dL Hemoglobin A1c (<=6.0) % Calcium (8.4-10.2) mg/dL AST (17-59) U/L Total Protein (6.3-8.2) g/dL Albumin (3.5-5.0) g/dL Urine Protein (Negative) Urine Glucose (UA) (Negative) Urine Ketones (Negative) Urine Blood (Negative) 09/18/24 09/18/24 09/19/24 Range/Units 23:08 23:51 00:17 WBC (3.8-10.6) k/uL Neutrophils # (1.3-7.7) k/uL Sodium 129 L (137-145) mmol/L Carbon Dioxide 15 L (22-30) mmol/L Creatinine 0.55 L (0.66-1.25) mg/dL Glucose 203 H (74-99) mg/dL POC Glucose (mg/dL) 222 H 219 H (70-110) mg/dL Hemoglobin A1c (<=6.0) % Calcium 8.0 L (8.4-10.2) mg/dL AST (17-59) U/L Total Protein (6.3-8.2) g/dL Albumin (3.5-5.0) g/dL Urine Protein (Negative) Urine Glucose (UA) (Negative) Urine Ketones (Negative) Urine Blood (Negative) 09/19/24 09/19/24 09/19/24 Range/Units 01:14 02:09 03:27 WBC (3.8-10.6) k/uL Neutrophils # (1.3-7.7) k/uL Sodium (137-145) mmol/L Carbon Dioxide (22-30) mmol/L Creatinine (0.66-1.25) mg/dL Glucose (74-99) mg/dL POC Glucose (mg/dL) 202 H 219 H 246 H (70-110) mg/dL Hemoglobin A1c (<=6.0) % Calcium (8.4-10.2) mg/dL AST (17-59) U/L Total Protein (6.3-8.2) g/dL Albumin (3.5-5.0) g/dL Urine Protein (Negative) Urine Glucose (UA) (Negative) Urine Ketones (Negative) Urine Blood (Negative) 09/19/24 09/19/24 09/19/24 Range/Units 04:44 05:36 06:26 WBC (3.8-10.6) k/uL Neutrophils # (1.3-7.7) k/uL Sodium (137-145) mmol/L Carbon Dioxide (22-30) mmol/L Creatinine (0.66-1.25) mg/dL Glucose (74-99) mg/dL POC Glucose (mg/dL) 220 H 226 H 215 H (70-110) mg/dL Hemoglobin A1c (<=6.0) % Calcium (8.4-10.2) mg/dL AST (17-59) U/L Total Protein (6.3-8.2) g/dL Albumin (3.5-5.0) g/dL Urine Protein (Negative) Urine Glucose (UA) (Negative) Urine Ketones (Negative) Urine Blood (Negative) 09/19/24 09/19/24 09/19/24 Range/Units 06:58 06:58 07:18 WBC 14.8 H (3.8-10.6) k/uL Neutrophils # 12.2 H (1.3-7.7) k/uL Sodium 129 L (137-145) mmol/L Carbon Dioxide 19 L (22-30) mmol/L Creatinine 0.57 L (0.66-1.25) mg/dL Glucose 249 H (74-99) mg/dL POC Glucose (mg/dL) 241 H (70-110) mg/dL Hemoglobin A1c (<=6.0) % Calcium 7.6 L (8.4-10.2) mg/dL AST 12 L (17-59) U/L Total Protein 5.4 L (6.3-8.2) g/dL Albumin 2.9 L (3.5-5.0) g/dL Urine Protein (Negative) Urine Glucose (UA) (Negative) Urine Ketones (Negative) Urine Blood (Negative) 09/19/24 09/19/24 09/19/24 Range/Units 08:55 10:26 11:13 WBC (3.8-10.6) k/uL Neutrophils # (1.3-7.7) k/uL Sodium (137-145) mmol/L Carbon Dioxide (22-30) mmol/L Creatinine (0.66-1.25) mg/dL Glucose (74-99) mg/dL POC Glucose (mg/dL) 271 H 268 H 244 H (70-110) mg/dL Hemoglobin A1c (<=6.0) % Calcium (8.4-10.2) mg/dL AST (17-59) U/L Total Protein (6.3-8.2) g/dL Albumin (3.5-5.0) g/dL Urine Protein (Negative) Urine Glucose (UA) (Negative) Urine Ketones (Negative) Urine Blood (Negative) 09/19/24 09/19/24 Range/Units 12:28 13:41 WBC (3.8-10.6) k/uL Neutrophils # (1.3-7.7) k/uL Sodium (137-145) mmol/L Carbon Dioxide (22-30) mmol/L Creatinine (0.66-1.25) mg/dL Glucose (74-99) mg/dL POC Glucose (mg/dL) 240 H 240 H (70-110) mg/dL Hemoglobin A1c (<=6.0) % Calcium (8.4-10.2) mg/dL AST (17-59) U/L Total Protein (6.3-8.2) g/dL Albumin (3.5-5.0) g/dL Urine Protein (Negative) Urine Glucose (UA) (Negative) Urine Ketones (Negative) Urine Blood (Negative) Microbiology - Last 24 Hours (Table) 09/18/24 06:27 Blood Culture - Preliminary Blood 09/18/24 11:29 Gram Stain - Preliminary Groin Wound Culture - Preliminary
[2024-09-19] MEDS: LACTATED RINGERS 1,000 ML IV SCH (15:45)
[2024-09-19 15:48] LABS: Glucose,Whole Blood 257 mg/dL (70-110)
[2024-09-19] MEDS: INSULIN NPH 100 UNIT/ML 10 ML VIAL SQ ONE (15:49)
--- NOTE | 2024-09-19 15:57 | P.PN ---
Subjective Progress Note Date: 09/19/24 Principal diagnosis: Reason for follow-up is right upper thigh abscess Patient is a 54-year-old male with a past medical history difficult for diabetes mellitus skin and soft tissue infection presenting to the hospital for evaluation of right groin/upper thigh area pain swelling redness and has been diagnosed with an abscess status post I&D. On today's evaluation that is 09/19/2024, the patient continues to be afebrile, the patient is on room air and breathing comfortably, the Pt denies having any chest pain or cough, the patient denies having any abdominal pain no vomiting or any diarrhea, pain to the right upper thigh has slightly decreased in intensity. Patient white count is down to 14.8 creatinine 0.57 cultures currently pending Objective - Vital Signs Vital signs: Vital Signs Temp 97.6 F 09/19/24 05:47 Pulse 78 09/19/24 09:14 Resp 22 09/19/24 09:14 BP 136/82 09/19/24 09:14 Pulse Ox 100 09/19/24 09:14 FiO2 Intake & Output 09/18/24 09/19/24 09/19/24 18:59 06:59 18:59 Intake Total 42.703 1.574 6.6 Output Total 2400 Balance 42.703 -2398.426 6.6 Weight 77.111 kg Intake: Intake, IV Titration 42.703 1.574 6.6 Amount Insulin Regular 100 unit 42.703 1.574 6.6 In Sodium Chloride 0.9% 100 ml @ 0.1 UNITS/KG/HR 7.788 mls/hr IV .[id number] [facility] Rx#:[id number] Output: Urine 2400 - Exam GENERAL DESCRIPTION: Middle-age male lying in bed in no distress RESPIRATORY SYSTEM: Unlabored breathing , decreased breath sounds at bases HEART: S1 S2 regular rate and rhythm , ABDOMEN: Soft , no tenderness EXTREMITIES: No edema feet - Labs CBC & Chem 7: 09/19/24 06:58 09/19/24 06:58 Labs: Abnormal Lab Results - Last 24 Hours (Table) 09/18/24 09/18/24 09/18/24 Range/Units 06:27 11:34 11:52 WBC (3.8-10.6) k/uL Neutrophils # (1.3-7.7) k/uL Sodium 133 L (137-145) mmol/L Carbon Dioxide 9 L* (22-30) mmol/L Creatinine (0.66-1.25) mg/dL Glucose 203 H (74-99) mg/dL POC Glucose (mg/dL) 199 H (70-110) mg/dL Hemoglobin A1c 8.4 H (<=6.0) % Calcium (8.4-10.2) mg/dL AST (17-59) U/L Total Protein (6.3-8.2) g/dL Albumin (3.5-5.0) g/dL Urine Protein (Negative) Urine Glucose (UA) (Negative) Urine Ketones (Negative) Urine Blood (Negative) 09/18/24 09/18/24 09/18/24 Range/Units 11:56 12:48 13:54 WBC (3.8-10.6) k/uL Neutrophils # (1.3-7.7) k/uL Sodium (137-145) mmol/L Carbon Dioxide (22-30) mmol/L Creatinine (0.66-1.25) mg/dL Glucose (74-99) mg/dL POC Glucose (mg/dL) 178 H 147 H (70-110) mg/dL Hemoglobin A1c (<=6.0) % Calcium (8.4-10.2) mg/dL AST (17-59) U/L Total Protein (6.3-8.2) g/dL Albumin (3.5-5.0) g/dL Urine Protein 1+ H (Negative) Urine Glucose (UA) 4+ H (Negative) Urine Ketones 4+ H (Negative) Urine Blood Trace H (Negative) 09/18/24 09/18/24 09/18/24 Range/Units 14:50 15:57 16:05 WBC (3.8-10.6) k/uL Neutrophils # (1.3-7.7) k/uL Sodium 130 L (137-145) mmol/L Carbon Dioxide 17 L (22-30) mmol/L Creatinine 0.55 L (0.66-1.25) mg/dL Glucose 149 H (74-99) mg/dL POC Glucose (mg/dL) 150 H 140 H (70-110) mg/dL Hemoglobin A1c (<=6.0) % Calcium 7.9 L (8.4-10.2) mg/dL AST (17-59) U/L Total Protein (6.3-8.2) g/dL Albumin (3.5-5.0) g/dL Urine Protein (Negative) Urine Glucose (UA) (Negative) Urine Ketones (Negative) Urine Blood (Negative) 09/18/24 09/18/24 09/18/24 Range/Units 17:15 18:10 19:05 WBC (3.8-10.6) k/uL Neutrophils # (1.3-7.7) k/uL Sodium (137-145) mmol/L Carbon Dioxide (22-30) mmol/L Creatinine (0.66-1.25) mg/dL Glucose (74-99) mg/dL POC Glucose (mg/dL) 146 H 151 H 150 H (70-110) mg/dL Hemoglobin A1c (<=6.0) % Calcium (8.4-10.2) mg/dL AST (17-59) U/L Total Protein (6.3-8.2) g/dL Albumin (3.5-5.0) g/dL Urine Protein (Negative) Urine Glucose (UA) (Negative) Urine Ketones (Negative) Urine Blood (Negative) 09/18/24 09/18/24 09/18/24 Range/Units 20:01 20:30 21:10 WBC (3.8-10.6) k/uL Neutrophils # (1.3-7.7) k/uL Sodium 130 L (137-145) mmol/L Carbon Dioxide 18 L (22-30) mmol/L Creatinine 0.59 L (0.66-1.25) mg/dL Glucose 169 H (74-99) mg/dL POC Glucose (mg/dL) 170 H 159 H (70-110) mg/dL Hemoglobin A1c (<=6.0) % Calcium 7.8 L (8.4-10.2) mg/dL AST (17-59) U/L Total Protein (6.3-8.2) g/dL Albumin (3.5-5.0) g/dL Urine Protein (Negative) Urine Glucose (UA) (Negative) Urine Ketones (Negative) Urine Blood (Negative) 09/18/24 09/18/24 09/18/24 Range/Units 22:07 23:08 23:51 WBC (3.8-10.6) k/uL Neutrophils # (1.3-7.7) k/uL Sodium 129 L (137-145) mmol/L Carbon Dioxide 15 L (22-30) mmol/L Creatinine 0.55 L (0.66-1.25) mg/dL Glucose 203 H (74-99) mg/dL POC Glucose (mg/dL) 222 H 222 H (70-110) mg/dL Hemoglobin A1c (<=6.0) % Calcium 8.0 L (8.4-10.2) mg/dL AST (17-59) U/L Total Protein (6.3-8.2) g/dL Albumin (3.5-5.0) g/dL Urine Protein (Negative) Urine Glucose (UA) (Negative) Urine Ketones (Negative) Urine Blood (Negative) 09/19/24 09/19/24 09/19/24 Range/Units 00:17 01:14 02:09 WBC (3.8-10.6) k/uL Neutrophils # (1.3-7.7) k/uL Sodium (137-145) mmol/L Carbon Dioxide (22-30) mmol/L Creatinine (0.66-1.25) mg/dL Glucose (74-99) mg/dL POC Glucose (mg/dL) 219 H 202 H 219 H (70-110) mg/dL Hemoglobin A1c (<=6.0) % Calcium (8.4-10.2) mg/dL AST (17-59) U/L Total Protein (6.3-8.2) g/dL Albumin (3.5-5.0) g/dL Urine Protein (Negative) Urine Glucose (UA) (Negative) Urine Ketones (Negative) Urine Blood (Negative) 09/19/24 09/19/24 09/19/24 Range/Units 03:27 04:44 05:36 WBC (3.8-10.6) k/uL Neutrophils # (1.3-7.7) k/uL Sodium (137-145) mmol/L Carbon Dioxide (22-30) mmol/L Creatinine (0.66-1.25) mg/dL Glucose (74-99) mg/dL POC Glucose (mg/dL) 246 H 220 H 226 H (70-110) mg/dL Hemoglobin A1c (<=6.0) % Calcium (8.4-10.2) mg/dL AST (17-59) U/L Total Protein (6.3-8.2) g/dL Albumin (3.5-5.0) g/dL Urine Protein (Negative) Urine Glucose (UA) (Negative) Urine Ketones (Negative) Urine Blood (Negative) 09/19/24 09/19/24 09/19/24 Range/Units 06:26 06:58 06:58 WBC 14.8 H (3.8-10.6) k/uL Neutrophils # 12.2 H (1.3-7.7) k/uL Sodium 129 L (137-145) mmol/L Carbon Dioxide 19 L (22-30) mmol/L Creatinine 0.57 L (0.66-1.25) mg/dL Glucose 249 H (74-99) mg/dL POC Glucose (mg/dL) 215 H (70-110) mg/dL Hemoglobin A1c (<=6.0) % Calcium 7.6 L (8.4-10.2) mg/dL AST 12 L (17-59) U/L Total Protein 5.4 L (6.3-8.2) g/dL Albumin 2.9 L (3.5-5.0) g/dL Urine Protein (Negative) Urine Glucose (UA) (Negative) Urine Ketones (Negative) Urine Blood (Negative) 09/19/24 09/19/24 09/19/24 Range/Units 07:18 08:55 10:26 WBC (3.8-10.6) k/uL Neutrophils # (1.3-7.7) k/uL Sodium (137-145) mmol/L Carbon Dioxide (22-30) mmol/L Creatinine (0.66-1.25) mg/dL Glucose (74-99) mg/dL POC Glucose (mg/dL) 241 H 271 H 268 H (70-110) mg/dL Hemoglobin A1c (<=6.0) % Calcium (8.4-10.2) mg/dL AST (17-59) U/L Total Protein (6.3-8.2) g/dL Albumin (3.5-5.0) g/dL Urine Protein (Negative) Urine Glucose (UA) (Negative) Urine Ketones (Negative) Urine Blood (Negative) 09/19/24 Range/Units 11:13 WBC (3.8-10.6) k/uL Neutrophils # (1.3-7.7) k/uL Sodium (137-145) mmol/L Carbon Dioxide (22-30) mmol/L Creatinine (0.66-1.25) mg/dL Glucose (74-99) mg/dL POC Glucose (mg/dL) 244 H (70-110) mg/dL Hemoglobin A1c (<=6.0) % Calcium (8.4-10.2) mg/dL AST (17-59) U/L Total Protein (6.3-8.2) g/dL Albumin (3.5-5.0) g/dL Urine Protein (Negative) Urine Glucose (UA) (Negative) Urine Ketones (Negative) Urine Blood (Negative) Microbiology - Last 24 Hours (Table) 09/18/24 11:29 Gram Stain - Preliminary Groin Wound Culture - Preliminary Assessment and Plan (1) Abscess of right thigh Current Visit: Yes Status: Acute Code(s): L02.415 - CUTANEOUS ABSCESS OF RIGHT LOWER LIMB SNOMED Code(s): 63586880773973582 Plan: 1patient presented to hospital increasing pain swelling redness to right upper thigh area with developing apparent abscess likely from gram-positive skin tim in this patient did 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 please excuse any grammatical, word or spelling errors. Time with Patient: Less than 30
[2024-09-19] MEDS: VANCOMYCIN TROUGH DUE 1 EACH MISC MISCELLANE ONE (16:07)
[2024-09-19 16:47] LABS: Glucose,Whole Blood 222 mg/dL (70-110)
[2024-09-19] MEDS: INSULIN LISPRO (HumaLOG) 100 UNIT/ML 10 mL VL SQ SCH ×2 (17:06→17:46)
[2024-09-19 20:12] LABS: Glucose,Whole Blood 292 mg/dL (70-110)
[2024-09-19] MEDS: VANCOMYCIN 1,500 MG in SODIUM CHLORIDE 0.9% 500 ML 500 ML IVPB SCH (21:35)
[2024-09-19] MEDS: INSULIN GLARGINE (LANTUS) 100 UNIT/ML SYR SQ SCH (21:36)
[2024-09-20 02:02] LABS: Glucose,Whole Blood 156 mg/dL (70-110)
[2024-09-20 06:20] LABS: Glucose,Whole Blood 180 mg/dL (70-110)
[2024-09-20] MEDS: VANCOMYCIN 1,500 MG in SODIUM CHLORIDE 0.9% 500 ML 500 ML IVPB SCH (06:30)
[2024-09-20 08:01] LABS: Basophils % (A) 0 %; Eosinophils # (A) 0.1 k/uL (0-0.7); Eosinophils % (A) 1 %; HCT 39.6 % (39.0-53.0); HGB 12.9 gm/dL (13.0-17.5); Lymphocytes # (A) 1.1 k/uL (1.0-4.8); Lymphocytes % (A) 11 %; MCH 29.6 pg (25.0-35.0); MCHC 32.5 g/dL (31.0-37.0); MCV 91.1 fL (80.0-100.0); Mean Platelet Volume 7.3; Monocytes # (A) 0.6 k/uL (0-1.0); Monocytes % (A) 6 %; Neutrophils # (A) 7.8 k/uL (1.3-7.7); Neutrophils % (A) 80 %; Platelet Count 306 k/uL (150-450); RBC 4.35 m/uL (4.30-5.90); RDW 14.1 % (11.5-15.5); WBC 9.7 k/uL (3.8-10.6)
[2024-09-20 08:14] LABS: ALT 23 U/L (4-49); AST 22 U/L (17-59); African American GFR (CKD) >90 (>60 ml/min/1.73 sqM); Albumin 2.6 g/dL (3.5-5.0); Alkaline Phosphatase 67 U/L (38-126); Anion Gap 7 mmol/L; Blood Urea Nitrogen 5 mg/dL (9-20); Calcium 7.4 mg/dL (8.4-10.2); Carbon Dioxide 28 mmol/L (22-30); Chloride 100 mmol/L (98-107); Glucose 171 mg/dL (74-99); Magnesium 1.9 mg/dL (1.6-2.3); Non-African American GFR(CKD) >90 (>60 ml/min/1.73 sqM); Sodium 135 mmol/L (137-145); Total Bilirubin 0.3 mg/dL (0.2-1.3); Total Protein 5.1 g/dL (6.3-8.2)
--- NOTE | 2024-09-20 08:22 | P.PN ---
Subjective Progress Note Date: 09/20/24 The patient is doing well. He feels that his right thigh abscess area has improved. On exam vital signs appear stable. Abdomen is soft. Felicia the right thigh abscess area has decreased cellulitis and induration. Right thigh abscess secondary to poorly controlled diabetes. Patient will continue local wound care. Objective - Vital Signs Vital signs: Vital Signs Temp 98.4 F 09/20/24 04:00 Pulse 71 09/20/24 04:00 Resp 18 09/20/24 04:00 BP 123/77 09/20/24 04:00 Pulse Ox 99 09/20/24 04:00 FiO2 Intake & Output 09/19/24 09/20/24 09/20/24 18:59 06:59 18:59 Intake Total 17.896 Balance 17.896 Weight 74.1 kg Intake: Intake, IV Titration 17.896 Amount Insulin Regular 100 unit 17.896 In Sodium Chloride 0.9% 100 ml @ 0.1 UNITS/KG/HR 7.788 mls/hr IV .[id number] [facility] Rx#:[id number] Other: Voiding Method Toilet # Voids 1 - Labs CBC & Chem 7: 09/20/24 07:32 09/20/24 07:32 Labs: Abnormal Lab Results - Last 24 Hours (Table) 09/19/24 09/19/24 09/19/24 Range/Units 08:55 10:26 11:13 Hgb (13.0-17.5) gm/dL Neutrophils # (1.3-7.7) k/uL Sodium (137-145) mmol/L Potassium (3.5-5.1) mmol/L BUN (9-20) mg/dL Creatinine (0.66-1.25) mg/dL Glucose (74-99) mg/dL POC Glucose (mg/dL) 271 H 268 H 244 H (70-110) mg/dL Calcium (8.4-10.2) mg/dL Total Protein (6.3-8.2) g/dL Albumin (3.5-5.0) g/dL 09/19/24 09/19/24 09/19/24 Range/Units 12:28 13:41 15:46 Hgb (13.0-17.5) gm/dL Neutrophils # (1.3-7.7) k/uL Sodium (137-145) mmol/L Potassium (3.5-5.1) mmol/L BUN (9-20) mg/dL Creatinine (0.66-1.25) mg/dL Glucose (74-99) mg/dL POC Glucose (mg/dL) 240 H 240 H 257 H (70-110) mg/dL Calcium (8.4-10.2) mg/dL Total Protein (6.3-8.2) g/dL Albumin (3.5-5.0) g/dL 09/19/24 09/19/24 09/20/24 Range/Units 16:46 19:46 01:58 Hgb (13.0-17.5) gm/dL Neutrophils # (1.3-7.7) k/uL Sodium (137-145) mmol/L Potassium (3.5-5.1) mmol/L BUN (9-20) mg/dL Creatinine (0.66-1.25) mg/dL Glucose (74-99) mg/dL POC Glucose (mg/dL) 222 H 292 H 156 H (70-110) mg/dL Calcium (8.4-10.2) mg/dL Total Protein (6.3-8.2) g/dL Albumin (3.5-5.0) g/dL 09/20/24 09/20/24 09/20/24 Range/Units 05:58 07:32 07:32 Hgb 12.9 L (13.0-17.5) gm/dL Neutrophils # 7.8 H (1.3-7.7) k/uL Sodium 135 L (137-145) mmol/L Potassium 3.0 L (3.5-5.1) mmol/L BUN 5 L (9-20) mg/dL Creatinine 0.46 L (0.66-1.25) mg/dL Glucose 171 H (74-99) mg/dL POC Glucose (mg/dL) 180 H (70-110) mg/dL Calcium 7.4 L (8.4-10.2) mg/dL Total Protein 5.1 L (6.3-8.2) g/dL Albumin 2.6 L (3.5-5.0) g/dL Microbiology - Last 24 Hours (Table) 09/18/24 06:27 Blood Culture - Preliminary Blood 09/18/24 11:29 Gram Stain - Preliminary Groin Wound Culture - Preliminary
[2024-09-20] MEDS: POTASSIUM CHLORIDE ER 20 MEQ TAB.ER PO SCH (08:35)
[2024-09-20 11:18] LABS: Glucose,Whole Blood 168 mg/dL (70-110)
--- NOTE | 2024-09-20 11:56 | P.PN ---
Subjective Progress Note Date: 09/20/24 54-year-old male with history of type 2 diabetes and history of MRSA (wound culture) presenting with right thigh pain. In the ED, temperature was 97.2, pulse 126, blood pressure 170/105, respiratory rate 16, saturating at 100% on room air. WBC 22.1, hemoglobin 15.9, pH 7.12, pCO2 23, bicarb 8, sodium 132, creatinine 0.84, blood sugar 276, A1c 8.4, lactate 1.6, positive acetone, CRP 36.6. Pelvis CT showed moderate size focal abscess in the medial right thigh with inflammatory change or involvement of anterior medial right wound packed muscle. EKG independently interpreted, shows sinus tachycardia and nonspecific ST-T wave changes. Patient was started on broad-spectrum antibiotics. Surgery and ID consulted. Underwent bedside I&D. On insulin drip, gap closing. On IV antibiotics. 09/20/2024 patient seen and examined at bedside. No acute events overnight. Patient comfortable and awake at bedside. Has begun to have oral intake. Labs today: WBC 9.7 hemoglobin 12.9, platelet count 306,000, sodium 135, potassium 3, bicarb 28, BUN 5, creatinine 0.46, glucose 171, calcium 7.4, albumin 2.6. Review of systems: Pertinent positives and negatives as discussed in HPI, a complete review of sy stems was performed and all other systems are negative. Physical examination: Vital signs reviewed General: non toxic, no distress, appears at stated age Derm: no unusual rashes/lesions, warm, right thigh wound is packed with no tenderness, erythema or discharge surrounding skin Head: atraumatic, normocephalic, symmetric Eyes: EOMI, anicteric sclera, pupils equal round reactive to light ENT: Nose and ears atraumatic Neck: No cervical lymphadenopathy, trachea midline, supple Mouth: no lip lesion, mucus membranes moist Cardiovascular: S1S2 reg, no murmur Lungs: CTA bilateral, no rhonchi, no rales, no accessory muscle use Abdominal: soft, nontender to palpation, no guarding Ext: muscle strength 5 out of 5 in all 4 extremities grossly, no gross muscle atrophy, no contractures, positive dorsalis pedis pulse bilateral, no edema Neuro: CN II-XI grossly intact, no gross focal neuro deficits Psych: Alert and oriented x3, appropriate affect and mood Assessment/Plan: 54-year-old male with history of type 2 diabetes presented with right hip pain found to have focal abscess in medial right thigh, status post I&D. Presented with euglycemic DKA on admission. Active: #. Severe sepsis secondary to right thigh abscess -Blood cultures pending -Surgery note reviewed, did bedside I&D, tissue cultures pending -ID consulted -Patient continued on IV vancomycin 1.25 g every 8 hours, monitor for renal toxicity -Also on IV cefepime 2 g every 8 hours, IV Flagyl 500 IV every 8 hours -Pain control with oral Tylenol 650 every 6 hours, oral [place] 5 every 4 hours as needed, IV morphine 4 mg every 4 hours as needed for severe pain monitor for sedation #. Euglycemic DKA, resolved #. History of type 2 diabetes, A1c 8.4 #. Hypovolemic hyponatremia #. Metabolic acidosis, resolved #. Dehydration, improving -Triggered by severe sepsis -Will transition to subcu insulin 23 units nightly, 8 units AC 3 times daily, sliding scale insulin, monitor for hypoglycemia -Patient tolerating oral intake. Discontinued IV fluids -Patient is able to eat, encourage oral intake on consistent carbohydrate diet -Zofran 4 mg IV every hour as needed -Discontinue SGLT2 inhibitor, hold metformin F: Oral intake E: Monitor electrolytes particularly potassium and sodium N: Consistent carbohydrate diet A: And self ambulate DVT prophylaxis: Lovenox 40 mg subcu daily Nayla Polanco MD PGY-1/[employer] Dictation was produced using [employer] dictation software. please excuse any grammatical, word or spelling errors. I have seen and evaluated the patient today. Discussed with the resident and agree with the residents finding and plan as documented in the resident's note. Changes highlighted in blue font. Objective - Vital Signs Vital signs: Vital Signs Temp 98.4 F 09/20/24 04:00 Pulse 71 09/20/24 04:00 Resp 18 09/20/24 04:00 BP 123/77 09/20/24 04:00 Pulse Ox 99 09/20/24 04:00 FiO2 Intake & Output 09/19/24 09/20/24 09/20/24 18:59 06:59 18:59 Intake Total 17.896 Balance 17.896 Weight 74.1 kg Intake: Intake, IV Titration 17.896 Amount Insulin Regular 100 unit 17.896 In Sodium Chloride 0.9% 100 ml @ 0.1 UNITS/KG/HR 7.788 mls/hr IV .[id number] [facility] Rx#:[id number] Other: Voiding Method Toilet # Voids 1 - Labs CBC & Chem 7: 09/20/24 07:32 09/20/24 07:32 Labs: Abnormal Lab Results - Last 24 Hours (Table) 09/19/24 09/19/24 09/19/24 Range/Units 06:58 06:58 07:18 WBC 14.8 H (3.8-10.6) k/uL Neutrophils # 12.2 H (1.3-7.7) k/uL Sodium 129 L (137-145) mmol/L Carbon Dioxide 19 L (22-30) mmol/L Creatinine 0.57 L (0.66-1.25) mg/dL Glucose 249 H (74-99) mg/dL POC Glucose (mg/dL) 241 H (70-110) mg/dL Calcium 7.6 L (8.4-10.2) mg/dL AST 12 L (17-59) U/L Total Protein 5.4 L (6.3-8.2) g/dL Albumin 2.9 L (3.5-5.0) g/dL 09/19/24 09/19/24 09/19/24 Range/Units 08:55 10:26 11:13 WBC (3.8-10.6) k/uL Neutrophils # (1.3-7.7) k/uL Sodium (137-145) mmol/L Carbon Dioxide (22-30) mmol/L Creatinine (0.66-1.25) mg/dL Glucose (74-99) mg/dL POC Glucose (mg/dL) 271 H 268 H 244 H (70-110) mg/dL Calcium (8.4-10.2) mg/dL AST (17-59) U/L Total Protein (6.3-8.2) g/dL Albumin (3.5-5.0) g/dL 09/19/24 09/19/24 09/19/24 Range/Units 12:28 13:41 15:46 WBC (3.8-10.6) k/uL Neutrophils # (1.3-7.7) k/uL Sodium (137-145) mmol/L Carbon Dioxide (22-30) mmol/L Creatinine (0.66-1.25) mg/dL Glucose (74-99) mg/dL POC Glucose (mg/dL) 240 H 240 H 257 H (70-110) mg/dL Calcium (8.4-10.2) mg/dL AST (17-59) U/L Total Protein (6.3-8.2) g/dL Albumin (3.5-5.0) g/dL 09/19/24 09/19/24 09/20/24 Range/Units 16:46 19:46 01:58 WBC (3.8-10.6) k/uL Neutrophils # (1.3-7.7) k/uL Sodium (137-145) mmol/L Carbon Dioxide (22-30) mmol/L Creatinine (0.66-1.25) mg/dL Glucose (74-99) mg/dL POC Glucose (mg/dL) 222 H 292 H 156 H (70-110) mg/dL Calcium (8.4-10.2) mg/dL AST (17-59) U/L Total Protein (6.3-8.2) g/dL Albumin (3.5-5.0) g/dL 09/20/24 Range/Units 05:58 WBC (3.8-10.6) k/uL Neutrophils # (1.3-7.7) k/uL Sodium (137-145) mmol/L Carbon Dioxide (22-30) mmol/L Creatinine (0.66-1.25) mg/dL Glucose (74-99) mg/dL POC Glucose (mg/dL) 180 H (70-110) mg/dL Calcium (8.4-10.2) mg/dL AST (17-59) U/L Total Protein (6.3-8.2) g/dL Albumin (3.5-5.0) g/dL Microbiology - Last 24 Hours (Table) 09/18/24 06:27 Blood Culture - Preliminary Blood 09/18/24 11:29 Gram Stain - Preliminary Groin Wound Culture - Preliminary
[2024-09-20 14:29] VITALS: BMI 24.8
--- NOTE | 2024-09-20 16:46 | P.PN ---
Subjective Progress Note Date: 09/20/24 Principal diagnosis: Reason for follow-up is right upper thigh abscess Patient is a 54-year-old male with a past medical history difficult for diabetes mellitus skin and soft tissue infection presenting to the hospital for evaluation of right groin/upper thigh area pain swelling redness and has been diagnosed with an abscess status post I&D. On today's evaluation that is 09/20/2024, patient did not have any fever and denies any chills, patient is breathing comfortably on room air, patient with no chest pain or cough patient did not have any abdominal pain nausea vomiting or any loose stools pain to the right medial thigh has decreased in intensity. Patient white count is down to 9.7 creatinine 0.46 culture have been negative so far Objective - Vital Signs Vital signs: Vital Signs Temp 98.2 F 09/20/24 08:25 Pulse 75 09/20/24 08:25 Resp 16 09/20/24 08:25 BP 137/82 09/20/24 08:25 Pulse Ox 93 L 09/20/24 08:25 FiO2 Intake & Output 09/19/24 09/20/24 09/20/24 18:59 06:59 18:59 Intake Total 17.896 240 Balance 17.896 240 Weight 74.1 kg Intake: Intake, IV Titration 17.896 Amount Insulin Regular 100 unit 17.896 In Sodium Chloride 0.9% 100 ml @ 0.1 UNITS/KG/HR 7.788 mls/hr IV .[id number] [facility] Rx#:[id number] Oral 240 Other: Voiding Method Toilet Toilet # Voids 1 - Exam GENERAL DESCRIPTION: Middle-age male lying in bed in no distress RESPIRATORY SYSTEM: Unlabored breathing , decreased breath sounds at bases HEART: S1 S2 regular rate and rhythm , ABDOMEN: Soft , no tenderness EXTREMITIES: Right groin/medial thigh with area of open wound surrounding redness and decreased - Labs CBC & Chem 7: 09/20/24 07:32 09/20/24 07:32 Labs: Abnormal Lab Results - Last 24 Hours (Table) 09/19/24 09/19/24 09/19/24 Range/Units 13:41 15:46 16:46 Hgb (13.0-17.5) gm/dL Neutrophils # (1.3-7.7) k/uL Sodium (137-145) mmol/L Potassium (3.5-5.1) mmol/L BUN (9-20) mg/dL Creatinine (0.66-1.25) mg/dL Glucose (74-99) mg/dL POC Glucose (mg/dL) 240 H 257 H 222 H (70-110) mg/dL Calcium (8.4-10.2) mg/dL Total Protein (6.3-8.2) g/dL Albumin (3.5-5.0) g/dL 09/19/24 09/20/24 09/20/24 Range/Units 19:46 01:58 05:58 Hgb (13.0-17.5) gm/dL Neutrophils # (1.3-7.7) k/uL Sodium (137-145) mmol/L Potassium (3.5-5.1) mmol/L BUN (9-20) mg/dL Creatinine (0.66-1.25) mg/dL Glucose (74-99) mg/dL POC Glucose (mg/dL) 292 H 156 H 180 H (70-110) mg/dL Calcium (8.4-10.2) mg/dL Total Protein (6.3-8.2) g/dL Albumin (3.5-5.0) g/dL 09/20/24 09/20/24 09/20/24 Range/Units 07:32 07:32 11:17 Hgb 12.9 L (13.0-17.5) gm/dL Neutrophils # 7.8 H (1.3-7.7) k/uL Sodium 135 L (137-145) mmol/L Potassium 3.0 L (3.5-5.1) mmol/L BUN 5 L (9-20) mg/dL Creatinine 0.46 L (0.66-1.25) mg/dL Glucose 171 H (74-99) mg/dL POC Glucose (mg/dL) 168 H (70-110) mg/dL Calcium 7.4 L (8.4-10.2) mg/dL Total Protein 5.1 L (6.3-8.2) g/dL Albumin 2.6 L (3.5-5.0) g/dL Microbiology - Last 24 Hours (Table) 09/18/24 06:27 Blood Culture - Preliminary Blood 09/18/24 11:29 Gram Stain - Final Groin Wound Culture - Final Assessment and Plan (1) Abscess of right thigh Current Visit: Yes Status: Acute Code(s): L02.415 - CUTANEOUS ABSCESS OF RIGHT LOWER LIMB SNOMED Code(s): 39375784093960770 Plan: 1patient presented to hospital increasing pain swelling redness to right upper thigh area with developing apparent abscess likely from gram-positive skin tim in this patient did have a history of MRSA likely related to MRSA 2-sulfa allergy that will limit the number of antibiotics safe to use 3-patient white count has normalized culture has been negative 4-we will discontinue vancomycin and cefepime start the patient on Unasyn and will transition to oral antibiotic on discharge Dictation was produced using [employer] dictation software. please excuse any grammatical, word or spelling errors. Time with Patient: Less than 30
[2024-09-20 17:00] LABS: Glucose,Whole Blood 119 mg/dL (70-110)
[2024-09-20] MEDS: AMPICILLIN-SULBACTAM 3 GM in SODIUM CHLORIDE 0.9% 100 ML IVPB SCH (17:31)
[2024-09-20] MEDS: LACTATED RINGERS 1,000 ML IV SCH (17:54)
[2024-09-20 20:09] LABS: Glucose,Whole Blood 223 mg/dL (70-110)
[2024-09-21 02:00] LABS: Glucose,Whole Blood 148 mg/dL (70-110)
[2024-09-21] MEDS ORDERED: VANCOMYCIN TROUGH DUE 1 EACH MISC MISCELLANE ONE (05:00)
[2024-09-21 06:21] LABS: Glucose,Whole Blood 131 mg/dL (70-110)
[2024-09-21 07:49] LABS: Basophils # (A) 0.1 k/uL (0-0.2); Basophils % (A) 1 %; Eosinophils # (A) 0.1 k/uL (0-0.7); Eosinophils % (A) 1 %; HCT 45.5 % (39.0-53.0); HGB 14.6 gm/dL (13.0-17.5); Lymphocytes # (A) 1.1 k/uL (1.0-4.8); Lymphocytes % (A) 14 %; MCH 29.4 pg (25.0-35.0); MCHC 32.2 g/dL (31.0-37.0); MCV 91.4 fL (80.0-100.0); Mean Platelet Volume 7.4; Monocytes # (A) 0.5 k/uL (0-1.0); Monocytes % (A) 6 %; Neutrophils # (A) 6.1 k/uL (1.3-7.7); Neutrophils % (A) 78 %; Platelet Count 372 k/uL (150-450); RBC 4.97 m/uL (4.30-5.90); WBC 7.8 k/uL (3.8-10.6)
[2024-09-21 08:02] LABS: African American GFR (CKD) >90 (>60 ml/min/1.73 sqM); Anion Gap 4 mmol/L; Blood Urea Nitrogen <2 mg/dL (9-20); Calcium 7.8 mg/dL (8.4-10.2); Carbon Dioxide 39 mmol/L (22-30); Chloride 92 mmol/L (98-107); Glucose 149 mg/dL (74-99); Non-African American GFR(CKD) >90 (>60 ml/min/1.73 sqM); Sodium 135 mmol/L (137-145)
[2024-09-21] MEDS: POTASSIUM CHLORIDE ER 20 MEQ TAB.ER PO SCH (08:53)
--- NOTE | 2024-09-21 11:06 | P.PN ---
Subjective Progress Note Date: 09/21/24 Patient feels well. There is no acute changes. His right thigh abscess is healing. On exam there is significant reduction induration cellulitis of the abscess site. Will continue IV antibiotics. Objective - Vital Signs Vital signs: Vital Signs Temp 98.4 F 09/21/24 07:29 Pulse 57 L 09/21/24 07:29 Resp 18 09/21/24 07:29 BP 154/78 09/21/24 07:29 Pulse Ox 100 09/21/24 07:29 FiO2 Intake & Output 09/20/24 09/21/24 09/21/24 18:59 06:59 18:59 Intake Total 240 Balance 240 Weight 74.1 kg 74.1 kg Intake: Oral 240 Other: Voiding Method Toilet Toilet # Voids 2 4 - Labs CBC & Chem 7: 09/21/24 07:07 09/21/24 07:07 Labs: Abnormal Lab Results - Last 24 Hours (Table) 09/20/24 09/20/24 09/20/24 Range/Units 11:17 16:59 19:55 Sodium (137-145) mmol/L Potassium (3.5-5.1) mmol/L Chloride (98-107) mmol/L Carbon Dioxide (22-30) mmol/L BUN (9-20) mg/dL Creatinine (0.66-1.25) mg/dL Glucose (74-99) mg/dL POC Glucose (mg/dL) 168 H 119 H 223 H (70-110) mg/dL Calcium (8.4-10.2) mg/dL 09/21/24 09/21/24 09/21/24 Range/Units 01:58 05:48 07:07 Sodium 135 L (137-145) mmol/L Potassium 3.0 L (3.5-5.1) mmol/L Chloride 92 L (98-107) mmol/L Carbon Dioxide 39 H (22-30) mmol/L BUN <2 L (9-20) mg/dL Creatinine 0.48 L (0.66-1.25) mg/dL Glucose 149 H (74-99) mg/dL POC Glucose (mg/dL) 148 H 131 H (70-110) mg/dL Calcium 7.8 L (8.4-10.2) mg/dL Microbiology - Last 24 Hours (Table) 09/18/24 06:27 Blood Culture - Preliminary Blood 09/18/24 11:29 Gram Stain - Final Groin Wound Culture - Final
--- NOTE | 2024-09-21 11:46 | P.PN ---
Subjective Progress Note Date: 09/21/24 Subjective: Patient seen and examined at bedside. No acute events overnight. Able to tolerate oral intake Pertinent positives and negatives as discussed above, a complete review of systems was performed and all other systems are negative. Vitals Signs Reviewed. General: Nontoxic, no distress, appears at stated age Derm: Warm, dry, right thigh wound is packed Head: Atraumatic, normocephalic, symmetric Eyes: EOMI, no lid lag, anicteric sclera Mouth: No lip lesion, mucus membranes moist Cardiovascular: S1S2 reg, no murmur Lungs: CTA bilateral, no rhonchi, no rales, no accessory muscle use Abdominal: Soft, nontender to palpation, no guarding, no appreciable organomegaly Ext: No gross muscle atrophy, no edema, no contractures Neuro: CN II-XI grossly intact, no focal neuro deficits Psych: Alert, oriented, appropriate affect Data Reviewed Today: Pertinent Labs: WBC 7.8, hemoglobin 14.6, sodium 135, potassium 3, bicarb 39, creatinine 0.48, glucose range between 131 -1 49 Imaging: No new imaging Assessment and Plan: Severe sepsis secondary to right thigh abscess -Blood cultures pending -Surgery note reviewed, continue antibiotics -ID following, vancomycin and cefepime discontinued, started on Unasyn 3 g IV every 6 hours, IV Flagyl 500 IV every 8 hours -Pain control with oral Tylenol 650 every 6 hours, oral [place] 5 every 4 hours as needed, IV morphine 4 mg every 4 hours as needed for severe pain monitor for sedation Euglycemic DKA, resolved History of type 2 diabetes, A1c 8.4 Hypovolemic hyponatremia Metabolic acidosis, resolved Dehydration -Triggered by severe sepsis -Continue subcu insulin 23 units nightly, 8 units AC 3 times daily, sliding scale insulin, monitor for hypoglycemia -Patient tolerating oral intake, discontinue lactated Ringer's -Zofran 4 mg IV every hour as needed -Discontinue SGLT2 inhibitor, hold metformin Hypokalemia -60 mill equivalent oral potassium given today DVT ppx: Lovenox Code status: Full code Anticipated discharge place: Pending clinical course Anticipated discharge time: Pending clinical course Objective - Vital Signs Vital signs: Vital Signs Temp 98.4 F 09/21/24 07:29 Pulse 57 L 09/21/24 07:29 Resp 18 09/21/24 07:29 BP 154/78 09/21/24 07:29 Pulse Ox 100 09/21/24 07:29 FiO2 Intake & Output 09/20/24 09/21/24 09/21/24 18:59 06:59 18:59 Intake Total 240 Balance 240 Weight 74.1 kg 74.1 kg Intake: Oral 240 Other: Voiding Method Toilet Toilet # Voids 2 4 - Labs CBC & Chem 7: 09/21/24 07:07 09/21/24 07:07 Labs: Abnormal Lab Results - Last 24 Hours (Table) 09/20/24 09/20/24 09/21/24 Range/Units 16:59 19:55 01:58 Sodium (137-145) mmol/L Potassium (3.5-5.1) mmol/L Chloride (98-107) mmol/L Carbon Dioxide (22-30) mmol/L BUN (9-20) mg/dL Creatinine (0.66-1.25) mg/dL Glucose (74-99) mg/dL POC Glucose (mg/dL) 119 H 223 H 148 H (70-110) mg/dL Calcium (8.4-10.2) mg/dL 09/21/24 09/21/24 Range/Units 05:48 07:07 Sodium 135 L (137-145) mmol/L Potassium 3.0 L (3.5-5.1) mmol/L Chloride 92 L (98-107) mmol/L Carbon Dioxide 39 H (22-30) mmol/L BUN <2 L (9-20) mg/dL Creatinine 0.48 L (0.66-1.25) mg/dL Glucose 149 H (74-99) mg/dL POC Glucose (mg/dL) 131 H (70-110) mg/dL Calcium 7.8 L (8.4-10.2) mg/dL Microbiology - Last 24 Hours (Table) 09/18/24 06:27 Blood Culture - Preliminary Blood 09/18/24 11:29 Gram Stain - Final Groin Wound Culture - Final
[2024-09-21 13:10] LABS: Glucose,Whole Blood 149 mg/dL (70-110)
[2024-09-21] MEDS: POTASSIUM CHLORIDE ER 20 MEQ TAB.ER PO ONE (13:16)
[2024-09-21] MEDS: POTASSIUM CHLORIDE ER 20 MEQ TAB.ER PO STA ×2 (13:18→15:24)
[2024-09-21] MEDS: POTASSIUM CHLORIDE 10 MEQ in WATER FOR INJECTION 1 100ML.BAG IVPB SCH (15:29)
[2024-09-21] MEDS: POTASSIUM CHLORIDE 10 MEQ in WATER FOR INJECTION 4 100ML.BAG IVPB STA (16:15)
--- NOTE | 2024-09-21 16:34 | P.PN ---
Subjective Progress Note Date: 09/21/24 Principal diagnosis: Reason for follow-up is right upper thigh abscess Patient is a 54-year-old male with a past medical history difficult for diabetes mellitus skin and soft tissue infection presenting to the hospital for evaluation of right groin/upper thigh area pain swelling redness and has been diagnosed with an abscess status post I&D. On today's evaluation that is 09/21/2024, Patient is afebrile patient is currently on room air and denies having any shortness of breath, the patient denies any chest pain or cough, the patient denies any nausea vomiting did not have any abdominal pain and no diarrhea pain to the right medial thigh has decreased in intensity. Patient white count 7.8, creatinine 0.48 culture remains to be negative Objective - Vital Signs Vital signs: Vital Signs Temp 98.5 F 09/21/24 12:10 Pulse 62 09/21/24 12:10 Resp 18 09/21/24 12:10 BP 133/77 09/21/24 12:10 Pulse Ox 99 09/21/24 12:10 FiO2 Intake & Output 09/20/24 09/21/24 09/21/24 18:59 06:59 18:59 Intake Total 240 Balance 240 Weight 74.1 kg 74.1 kg Intake: Oral 240 Other: Voiding Method Toilet Toilet # Voids 2 4 - Exam GENERAL DESCRIPTION: Middle-age male lying in bed in no distress RESPIRATORY SYSTEM: Unlabored breathing , decreased breath sounds at bases HEART: S1 S2 regular rate and rhythm , ABDOMEN: Soft , no tenderness EXTREMITIES: Right groin/medial thigh with area of open wound surrounding redness and decreased - Labs CBC & Chem 7: 09/21/24 07:07 09/21/24 12:59 Labs: Abnormal Lab Results - Last 24 Hours (Table) 09/20/24 09/20/24 09/21/24 Range/Units 16:59 19:55 01:58 Sodium (137-145) mmol/L Potassium (3.5-5.1) mmol/L Chloride (98-107) mmol/L Carbon Dioxide (22-30) mmol/L BUN (9-20) mg/dL Creatinine (0.66-1.25) mg/dL Glucose (74-99) mg/dL POC Glucose (mg/dL) 119 H 223 H 148 H (70-110) mg/dL Calcium (8.4-10.2) mg/dL 09/21/24 09/21/24 09/21/24 Range/Units 05:48 07:07 12:59 Sodium 135 L (137-145) mmol/L Potassium 3.0 L 2.9 L (3.5-5.1) mmol/L Chloride 92 L (98-107) mmol/L Carbon Dioxide 39 H (22-30) mmol/L BUN <2 L (9-20) mg/dL Creatinine 0.48 L (0.66-1.25) mg/dL Glucose 149 H (74-99) mg/dL POC Glucose (mg/dL) 131 H (70-110) mg/dL Calcium 7.8 L (8.4-10.2) mg/dL 09/21/24 Range/Units 13:07 Sodium (137-145) mmol/L Potassium (3.5-5.1) mmol/L Chloride (98-107) mmol/L Carbon Dioxide (22-30) mmol/L BUN (9-20) mg/dL Creatinine (0.66-1.25) mg/dL Glucose (74-99) mg/dL POC Glucose (mg/dL) 149 H (70-110) mg/dL Calcium (8.4-10.2) mg/dL Microbiology - Last 24 Hours (Table) 09/18/24 06:27 Blood Culture - Preliminary Blood Assessment and Plan (1) Abscess of right thigh Current Visit: Yes Status: Acute Code(s): L02.415 - CUTANEOUS ABSCESS OF RIGHT LOWER LIMB SNOMED Code(s): 32759526529438104 Plan: 1patient presented to hospital increasing pain swelling redness to right upper thigh area with developing apparent abscess likely from gram-positive skin tim in this patient did have a history of MRSA likely related to MRSA 2-sulfa allergy that will limit the number of antibiotics safe to use 3-patient white count has normalized culture has been negative 4-patient to continue with the Unasyn local wound care with the Aquacel silver packing of the wound discussed with the nursing staff finishing therapy with Augmentin and close outpatient follow-up Dictation was produced using [employer] dictation software. please excuse any grammatical, word or spelling errors. Time with Patient: Less than 30
[2024-09-21 17:17] LABS: Glucose,Whole Blood 118 mg/dL (70-110)
[2024-09-21 20:07] LABS: Glucose,Whole Blood 234 mg/dL (70-110)
[2024-09-22 01:51] LABS: Glucose,Whole Blood 148 mg/dL (70-110)
[2024-09-22 07:48] LABS: Glucose,Whole Blood 188 mg/dL (70-110)
[2024-09-22 09:27] LABS: Blood Urea Nitrogen 4.5 mg/dL (9.0-27.0); Calcium 8.1 mg/dL (8.7-10.3); Carbon Dioxide 35.8 mmol/L (21.6-31.8); Chloride 98 mmol/L (96-109); Glucose 163 mg/dL (70-110); Magnesium 2.1 mg/dL (1.5-2.4); Potassium 3.7 mmol/L (3.5-5.5); Sodium 142 mmol/L (135-145)
--- NOTE | 2024-09-22 10:24 | P.PN ---
Subjective Progress Note Date: 09/22/24 SURGICAL PROGRESS NOTE CHIEF COMPLAINT: Right thigh abscess HISTORY OF PRESENT ILLNESS: Patient is postop day #3 status post incision and drainage of right thigh abscess. Patient reports decrease in pain. He is still having drainage from the wound. He is undergoing wound care dressing changes twice a day. Patient reports overall feeling better. Afebrile. WBC as of yesterday 7.8 PHYSICAL EXAM: VITAL SIGNS: Reviewed. GENERAL: Well-developed in no acute distress. Extremities: right thigh abscess decreased swelling, induration and erythema ASSESSMENT: 1. Right thigh abscess status post bedside incision and drainage 2. Sepsis PLAN: -Continue local wound care BID -Patient to shower daily -Antibiotics per ID service -Continue pain management Physician Construction Operations Manager note has been reviewed by physician. Signing provider agrees with the documented findings, assessment, and plan of care. Objective - Vital Signs Vital signs: Vital Signs Temp 97.7 F 09/22/24 07:35 Pulse 65 09/22/24 07:35 Resp 16 09/22/24 07:35 BP 156/80 09/22/24 07:35 Pulse Ox 100 09/22/24 07:35 FiO2 Intake & Output 09/21/24 09/22/24 09/22/24 18:59 06:59 18:59 Intake Total 1790 Balance 1790 Intake: Oral 1790 Other: Voiding Method Toilet # Voids 590 # Bowel Movements 6 - Labs CBC & Chem 7: 09/21/24 07:07 09/22/24 05:26 Labs: Abnormal Lab Results - Last 24 Hours (Table) 09/21/24 09/21/24 09/21/24 Range/Units 12:59 13:07 17:16 Potassium 2.9 L (3.5-5.1) mmol/L Carbon Dioxide (21.6-31.8) mmol/L BUN (9.0-27.0) mg/dL BUN/Creatinine Ratio (12.00-20.00) Ratio Glucose (70-110) mg/dL POC Glucose (mg/dL) 149 H 118 H (70-110) mg/dL Calcium (8.7-10.3) mg/dL 09/21/24 09/22/24 09/22/24 Range/Units 20:06 01:50 05:26 Potassium (3.5-5.1) mmol/L Carbon Dioxide 35.8 H (21.6-31.8) mmol/L BUN 4.5 L (9.0-27.0) mg/dL BUN/Creatinine Ratio 7.50 L (12.00-20.00) Ratio Glucose 163 H (70-110) mg/dL POC Glucose (mg/dL) 234 H 148 H (70-110) mg/dL Calcium 8.1 L (8.7-10.3) mg/dL 09/22/24 Range/Units 07:37 Potassium (3.5-5.1) mmol/L Carbon Dioxide (21.6-31.8) mmol/L BUN (9.0-27.0) mg/dL BUN/Creatinine Ratio (12.00-20.00) Ratio Glucose (70-110) mg/dL POC Glucose (mg/dL) 188 H (70-110) mg/dL Calcium (8.7-10.3) mg/dL Microbiology - Last 24 Hours (Table) 09/18/24 06:27 Blood Culture - Preliminary Blood
[2024-09-22 13:08] LABS: Glucose,Whole Blood 194 mg/dL (70-110)
--- NOTE | 2024-09-22 15:08 | P.PN ---
Subjective Progress Note Date: 09/22/24 54-year-old male with history of type 2 diabetes and history of MRSA (wound culture) presenting with right thigh pain. In the ED, temperature was 97.2, pulse 126, blood pressure 170/105, respiratory rate 16, saturating at 100% on room air. WBC 22.1, hemoglobin 15.9, pH 7.12, pCO2 23, bicarb 8, sodium 132, creatinine 0.84, blood sugar 276, A1c 8.4, lactate 1.6, positive acetone, CRP 36.6. Pelvis CT showed moderate size focal abscess in the medial right thigh with inflammatory change or involvement of anterior medial right wound packed muscle. EKG independently interpreted, shows sinus tachycardia and nonspecific ST-T wave changes. Patient was started on broad-spectrum antibiotics. Surgery and ID consulted. Underwent bedside I&D. On insulin drip, gap closing. On IV antibiotics. 09/20/2024 patient seen and examined at bedside. No acute events overnight. Patient comfortable and awake at bedside. Has begun to have oral intake. Labs today: WBC 9.7 hemoglobin 12.9, platelet count 306,000, sodium 135, potassium 3, bicarb 28, BUN 5, creatinine 0.46, glucose 171, calcium 7.4, albumin 2.6. 09/21/2024 Patient seen and examined at bedside. No acute events overnight. Able to tolerate oral intake. WBC 7.8, hemoglobin 14.6, sodium 135, potassium 3, bicarb 39, creatinine 0.48, glucose range between 131 -1 49 09/22/2024 patient seen and examined at bedside. Multiple episodes of loose bow el movement overnight that were nonbloody nonbilious. Patient reports that this is chronic however it is only started throughout this time during admission. Able to tolerate oral intake. Labs: Sodium 142, potassium 3.7, bicarb 35.8, BUN 4.5, creatinine 0.6, glucose 163, calcium 8.1, magnesium 2.1 Review of systems: Pertinent positives and negatives as discussed in HPI, a complete review of sys tems was performed and all other systems are negative. Physical examination: Vital signs reviewed General: non toxic, no distress, appears at stated age Derm: no unusual rashes/lesions, warm, right thigh wound is packed with no tenderness, erythema or discharge surrounding skin Head: atraumatic, normocephalic, symmetric Eyes: EOMI, anicteric sclera, pupils equal round reactive to light ENT: Nose and ears atraumatic Neck: No cervical lymphadenopathy, trachea midline, supple Mouth: no lip lesion, mucus membranes moist Cardiovascular: S1S2 reg, no murmur Lungs: CTA bilateral, no rhonchi, no rales, no accessory muscle use Abdominal: soft, nontender to palpation, no guarding Ext: muscle strength 5 out of 5 in all 4 extremities grossly, no gross muscle atrophy, no contractures, positive dorsalis pedis pulse bilateral, no edema Neuro: CN II-XI grossly intact, no gross focal neuro deficits Psych: Alert and oriented x3, appropriate affect and mood Assessment/Plan: 54-year-old male with history of type 2 diabetes presented with right hip pain found to have focal abscess in medial right thigh, status post I&D. Presented with euglycemic DKA on admission. Now being evaluated for diarrhea Active: #. Severe sepsis secondary to right thigh abscess -Blood cultures final result pending. Negative for now -Surgery note reviewed, did bedside I&D, tissue cultures pending -ID consulted -IV vancomycin and IV Cefepime d/c 09/21 -Abx switched to Unasyn 3g IV every 6 hours and IV Flagyl 500 IV every 8 hours -Pain control with oral Tylenol 650 every 6 hours, oral Westley 5 every 4 hours as needed, IV morphine 4 mg every 4 hours as needed for severe pain monitor for sedation #. Euglycemic DKA, resolved #. History of type 2 diabetes, A1c 8.4 #. Hypovolemic hyponatremia #. Metabolic acidosis, resolved #. Dehydration, improving -Triggered by severe sepsis -Will transition to subcu insulin 23 units nightly, 8 units AC 3 times daily, sliding scale insulin, monitor for hypoglycemia -Patient tolerating oral intake. Discontinued IV fluids -Patient is able to eat, encourage oral intake on consistent carbohydrate diet -Zofran 4 mg IV every hour as needed -Discontinue SGLT2 inhibitor, hold metformin #. Diarrhea, likely due to antibiotics, rule out C. difficile -Patient has been experiencing multiple loose bowel movements overnight -Encourage oral intake -C. difficile EIA ordered #. Hypokalemia,resolved F: Oral intake E: Monitor electrolytes particularly potassium and sodium N: Consistent carbohydrate diet A: And self ambulate DVT prophylaxis: Lovenox 40 mg subcu daily Nayla Polanco MD PGY-1/[employer] Dictation was produced using [employer] dictation software. please excuse any grammatical, word or spelling errors. I have seen and evaluated the patient today. Discussed with the resident and agree with the residents finding and plan as documented in the resident's note. Changes highlighted in blue font. Objective - Vital Signs Vital signs: Vital Signs Temp 98.1 F 09/22/24 14:00 Pulse 77 09/22/24 14:00 Resp 17 09/22/24 14:00 BP 155/90 09/22/24 14:00 Pulse Ox 99 09/22/24 14:00 FiO2 Intake & Output 09/21/24 09/22/24 09/22/24 18:59 06:59 18:59 Intake Total 1790 Balance 1790 Intake: Oral 1790 Other: Voiding Method Toilet # Voids 590 # Bowel Movements 6 - Labs CBC & Chem 7: 09/21/24 07:07 09/22/24 05:26 Labs: Abnormal Lab Results - Last 24 Hours (Table) 09/21/24 09/21/24 09/22/24 Range/Units 17:16 20:06 01:50 Carbon Dioxide (21.6-31.8) mmol/L BUN (9.0-27.0) mg/dL BUN/Creatinine Ratio (12.00-20.00) Ratio Glucose (70-110) mg/dL POC Glucose (mg/dL) 118 H 234 H 148 H (70-110) mg/dL Calcium (8.7-10.3) mg/dL 09/22/24 09/22/24 09/22/24 Range/Units 05:26 07:37 13:05 Carbon Dioxide 35.8 H (21.6-31.8) mmol/L BUN 4.5 L (9.0-27.0) mg/dL BUN/Creatinine Ratio 7.50 L (12.00-20.00) Ratio Glucose 163 H (70-110) mg/dL POC Glucose (mg/dL) 188 H 194 H (70-110) mg/dL Calcium 8.1 L (8.7-10.3) mg/dL Microbiology - Last 24 Hours (Table) 09/18/24 06:27 Blood Culture - Preliminary Blood
[2024-09-22] MEDS: LOPERAMIDE 2 MG CAP PO PRN (16:46)
[2024-09-22 17:33] LABS: Glucose,Whole Blood 217 mg/dL (70-110)
--- NOTE | 2024-09-22 17:47 | P.PN ---
Subjective Progress Note Date: 09/22/24 Principal diagnosis: Reason for follow-up is right upper thigh abscess Patient is a 54-year-old male with a past medical history difficult for diabetes mellitus skin and soft tissue infection presenting to the hospital for evaluation of right groin/upper thigh area pain swelling redness and has been diagnosed with an abscess status post I&D. On today's evaluation that is 09/22/2024, patient has been afebrile, patient is breathing comfortably and is currently on room air, patient denies having any significant cough no chest pain, patient denies nausea vomiting complaining of some diarrhea but no abdominal pain pain to the right thigh have slightly decreased. Patient did have a creatinine 0.6 stool for C. difficile is negative Objective - Vital Signs Vital signs: Vital Signs Temp 97.7 F 09/22/24 07:35 Pulse 65 09/22/24 07:35 Resp 16 09/22/24 07:35 BP 156/80 09/22/24 07:35 Pulse Ox 100 09/22/24 07:35 FiO2 Intake & Output 09/21/24 09/22/24 09/22/24 18:59 06:59 18:59 Intake Total 1790 Balance 1790 Intake: Oral 1790 Other: Voiding Method Toilet # Voids 590 # Bowel Movements 6 - Exam GENERAL DESCRIPTION: Middle-age male lying in bed in no distress RESPIRATORY SYSTEM: Unlabored breathing , decreased breath sounds at bases HEART: S1 S2 regular rate and rhythm , ABDOMEN: Soft , no tenderness EXTREMITIES: Right groin/medial thigh with area of open wound surrounding redne ss and decreased - Labs CBC & Chem 7: 09/21/24 07:07 09/22/24 05:26 Labs: Abnormal Lab Results - Last 24 Hours (Table) 09/21/24 09/21/24 09/21/24 Range/Units 12:59 13:07 17:16 Potassium 2.9 L (3.5-5.1) mmol/L Carbon Dioxide (21.6-31.8) mmol/L BUN (9.0-27.0) mg/dL BUN/Creatinine Ratio (12.00-20.00) Ratio Glucose (70-110) mg/dL POC Glucose (mg/dL) 149 H 118 H (70-110) mg/dL Calcium (8.7-10.3) mg/dL 09/21/24 09/22/24 09/22/24 Range/Units 20:06 01:50 05:26 Potassium (3.5-5.1) mmol/L Carbon Dioxide 35.8 H (21.6-31.8) mmol/L BUN 4.5 L (9.0-27.0) mg/dL BUN/Creatinine Ratio 7.50 L (12.00-20.00) Ratio Glucose 163 H (70-110) mg/dL POC Glucose (mg/dL) 234 H 148 H (70-110) mg/dL Calcium 8.1 L (8.7-10.3) mg/dL 09/22/24 Range/Units 07:37 Potassium (3.5-5.1) mmol/L Carbon Dioxide (21.6-31.8) mmol/L BUN (9.0-27.0) mg/dL BUN/Creatinine Ratio (12.00-20.00) Ratio Glucose (70-110) mg/dL POC Glucose (mg/dL) 188 H (70-110) mg/dL Calcium (8.7-10.3) mg/dL Microbiology - Last 24 Hours (Table) 09/18/24 06:27 Blood Culture - Preliminary Blood Assessment and Plan (1) Abscess of right thigh Current Visit: Yes Status: Acute Code(s): L02.415 - CUTANEOUS ABSCESS OF RIGHT LOWER LIMB SNOMED Code(s): 01181857318049125 Plan: 1patient presented to hospital increasing pain swelling redness to right upper thigh area with developing apparent abscess likely from gram-positive skin tim in this patient did have a history of MRSA likely related to MRSA 2-sulfa allergy that will limit the number of antibiotics safe to use 3-patient white count has normalized culture has been negative 4-patient current day on Unasyn finishing therapy with a short course of Augmentin encouraged to increase his probiotic and yogurt intake Dictation was produced using [employer] dictation software. please excuse any grammatical, word or spelling errors. Time with Patient: Less than 30
[2024-09-22 20:56] LABS: Glucose,Whole Blood 140 mg/dL (70-110)
[2024-09-23 01:11] LABS: Glucose,Whole Blood 148 mg/dL (70-110)
[2024-09-23 05:13] LABS: African American GFR (CKD) >90 (>60 ml/min/1.73 sqM); Anion Gap 4 mmol/L; Blood Urea Nitrogen 6 mg/dL (9-20); Calcium 8.2 mg/dL (8.4-10.2); Carbon Dioxide 40 mmol/L (22-30); Chloride 94 mmol/L (98-107); Glucose 143 mg/dL (74-99); Non-African American GFR(CKD) >90 (>60 ml/min/1.73 sqM); Potassium 3.5 mmol/L (3.5-5.1); Sodium 138 mmol/L (137-145)
[2024-09-23 07:49] LABS: Glucose,Whole Blood 144 mg/dL (70-110)
[2024-09-23 08:54] VITALS: BP 142/81; PULSE 66; RESP 17; TEMP 98
--- NOTE | 2024-09-23 11:16 | P.PN ---
Subjective Progress Note Date: 09/23/24 SURGICAL PROGRESS NOTE CHIEF COMPLAINT: Right thigh abscess HISTORY OF PRESENT ILLNESS: Patient is postop day #4 status post incision and drainage of right thigh abscess. Patient reports he is feeling better. He reports decreased pain and swelling. He is having less drainage. He is anticipating discharge later today. Afebrile. PHYSICAL EXAM: VITAL SIGNS: Reviewed. GENERAL: Well-developed in no acute distress. Extremities: right thigh abscess decreased swelling, induration and erythema ASSESSMENT: 1. Right thigh abscess status post bedside incision and drainage 2. Sepsis 3. Diabetes mellitus PLAN: -Patient can be discharge from surgical standpoint -Continue local wound -Patient to shower daily -Antibiotics per ID service -Recommend tight blood sugar control Physician Security Installer note has been reviewed by physician. Signing provider agrees with the documented findings, assessment, and plan of care. Objective - Vital Signs Vital signs: Vital Signs Temp 98 F 09/23/24 08:00 Pulse 66 09/23/24 08:00 Resp 17 09/23/24 08:00 BP 142/81 09/23/24 08:00 Pulse Ox 99 09/23/24 08:00 FiO2 Intake & Output 09/22/24 09/23/24 09/23/24 18:59 06:59 18:59 Intake Total 200 Balance 200 Weight 68.8 kg Intake: Intake, IV Titration 200 Amount Ampicillin-Sulbactam 3 gm 200 In Sodium Chloride 0.9% 100 ml @ 200 mls/hr IVPB Q6HR [facility] Rx#:[id number] Other: Voiding Method Toilet Toilet # Voids 2 # Bowel Movements 6 - Labs CBC & Chem 7: 09/21/24 07:07 09/23/24 04:45 Labs: Abnormal Lab Results - Last 24 Hours (Table) 09/22/24 09/22/24 09/22/24 Range/Units 13:05 17:21 20:49 Chloride (98-107) mmol/L Carbon Dioxide (22-30) mmol/L BUN (9-20) mg/dL Creatinine (0.66-1.25) mg/dL Glucose (74-99) mg/dL POC Glucose (mg/dL) 194 H 217 H 140 H (70-110) mg/dL Calcium (8.4-10.2) mg/dL 09/23/24 09/23/24 09/23/24 Range/Units 00:48 04:45 07:47 Chloride 94 L (98-107) mmol/L Carbon Dioxide 40 H (22-30) mmol/L BUN 6 L (9-20) mg/dL Creatinine 0.59 L (0.66-1.25) mg/dL Glucose 143 H (74-99) mg/dL POC Glucose (mg/dL) 148 H 144 H (70-110) mg/dL Calcium 8.2 L (8.4-10.2) mg/dL
--- NOTE | 2024-09-23 11:59 | P.DS ---
Providers Date of admission: 09/18/24 08:12 Expected date of discharge: 09/23/24 Attending physician: Johnny Cavazos Consults: 09/18/24 07:59 Consult Physician Routine Consulting Provider: Curt Gonzalez Consult Reason/Comments: right thigh abscess/cellulitis Do you want consulting provider notified?: Yes 09/18/24 08:09 Consult Physician Routine Consulting Provider: Hermilo Young Consult Reason/Comments: right thigh abscess Do you want consulting provider notified?: Yes Primary care physician: Ct Garcia MD Hospital Course: Hospital Course: 54-year-old male with history of type 2 diabetes and history of MRSA (wound culture) presenting with right thigh pain. In the ED, temperature was 97.2, pulse 126, blood pressure 170/105, respiratory rate 16, saturating at 100% on room air. WBC 22.1, hemoglobin 15.9, pH 7.12, pCO2 23, bicarb 8, sodium 132, creatinine 0.84, blood sugar 276, A1c 8.4, lactate 1.6, positive acetone, CRP 36.6. Pelvis CT showed moderate size focal abscess in the medial right thigh with inflammatory change or involvement of anterior medial right wound packed muscle. EKG independently interpreted, shows sinus tachycardia and nonspecific ST-T wave changes. Patient was admitted for evaluation of severe sepsis due to right thigh abscess and euglycemic DKA. Patient was started on broad-spectrum antibiotics. Surgery and ID consulted. Underwent bedside I&D. DKA resolved and was placed on subcu insulin. IV antibiotics have now been discontinued and transition to oral Augmentin. Patient developed diarrhea during hospital stay and C. difficile was tested which resulted to be negative. Patient is cleared for discharge today as prescribed Levemir FlexPen, aspart FlexPen, oral Augmentin, and loperamide. His home Farxiga was discontinued. Patient is advised to follow-up with PCP, infectious disease and general surgery for wound care follow-up. Final Diagnosis: #. Severe sepsis secondary to right thigh abscess, resolved #. Euglycemic DKA, resolved #. History of type 2 diabetes, A1c 8.4 #. Hypovolemic hyponatremia #. Metabolic acidosis, resolved #. Dehydration, resolved #. Diarrhea, likely due to antibiotics, ruled out C. difficile #. Hypokalemia,resolved Physical examination: Vital signs reviewed General: non toxic, no distress Derm: no unusual rashes/lesions, warm, right thigh wound is packed with no tenderness, no erythema and no discharge surrounding skin Head: atraumatic, normocephalic, symmetric Eyes: EOMI, anicteric sclera, pupils equal round reactive to light ENT: Nose and ears atraumatic Neck: No cervical lymphadenopathy, trachea midline, supple Mouth: no lip lesion, mucus membranes moist Cardiovascular: S1S2 reg, no murmur Lungs: CTA bilateral, no rhonchi, no rales, no accessory muscle use Abdominal: soft, nondistended, nontender to palpation, no guarding Ext: muscle strength 5 out of 5 in all 4 extremities grossly, no gross muscle atrophy, no contractures, positive dorsalis pedis pulse bilateral, no edema Neuro: CN II-XI grossly intact, no gross focal neuro deficits Psych: Alert, oriented, appropriate affect and mood A total of 36 minutes of time were spent preparing this complex discharge summary. Patient was discharged on 09/23/2024 at 924. I have seen and evaluated the patient today. Discussed with the resident and agree with the residents finding and plan as documented in the resident's note. Changes highlighted in blue font. Patient Condition at Discharge: Serious Plan - Discharge Summary Discharge Rx Participant: Yes New Discharge Prescriptions: New Amoxic-Pot Clav 875-125Mg [Augmentin 875-125] 1 tab PO Q12HR 7 Days #14 tab Loperamide [Imodium] 2 mg PO QID PRN #20 cap PRN Reason: Diarrhea Insulin Aspart [Insulin Aspart Flexpen] 8 unit SQ AC-TID #7 each Insulin Detemir [Levemir Flexpen] 23 units SQ HS #7 each Continue metFORMIN HCL 1,000 mg PO BID #60 tablet Discontinued Dapagliflozin Propanediol [Farxiga] 10 mg PO DAILY Discharge Medication List metFORMIN HCL 1,000 mg PO BID #60 tablet 06/24/24 [Rx] Amoxic-Pot Clav 875-125Mg [Augmentin 875-125] 1 tab PO Q12HR 7 Days #14 tab 09/23/24 [Rx] Insulin Aspart [Insulin Aspart Flexpen] 8 unit SQ AC-TID #7 each 09/23/24 [Rx] Insulin Detemir [Levemir Flexpen] 23 units SQ HS #7 each 09/23/24 [Rx] Loperamide [Imodium] 2 mg PO QID PRN #20 cap 09/23/24 [Rx] Follow up Appointment(s)/Referral(s): Ct Garcia MD [Primary Care Provider] - 09/29/24 1:30 pm () Hermilo Young MD [STAFF PHYSICIAN] - 10/01/24 3:15 pm Curt Gonzalez MD [STAFF PHYSICIAN] - 09/30/24 2:00 pm Patient Instructions/Handouts: Loperamide (By mouth), Amoxicillin/Clavulanate Potassium (By mouth), Insulin Aspart, Recombinant (By injection), Insulin Detemir (By injection), Diabetic Ketoacidosis (DC), Abscess Incision and Drainage (DC) Activity/Diet/Wound Care/Special Instructions: Continue with local wound care. Cleanse with saline/shower prior to wound care. Opticell Ag packed in wound, 4x4 for excess drainage. Discharge Disposition: HOME SELF-CARE
--- NOTE | 2024-09-23 15:49 | P.PN ---
Subjective Progress Note Date: 09/23/24 Principal diagnosis: Reason for follow-up is right upper thigh abscess Patient is a 54-year-old male with a past medical history difficult for diabetes mellitus skin and soft tissue infection presenting to the hospital for evaluation of right groin/upper thigh area pain swelling redness and has been diagnosed with an abscess status post I&D. On today's evaluation that is 09/23/2024, Patient is afebrile this morning patient denies having any chest pain shortness of breath or cough, the patient is currently on room air, patient denies any abdominal pain diarrhea is noted on pain to the right medial thigh wound has decreased. Patient did have a creatinine 0.59 she did have a negative stool for C. difficile Objective - Vital Signs Vital signs: Vital Signs Temp 98 F 09/23/24 08:00 Pulse 66 09/23/24 08:00 Resp 17 09/23/24 08:00 BP 142/81 09/23/24 08:00 Pulse Ox 99 09/23/24 08:00 FiO2 Intake & Output 09/22/24 09/23/24 09/23/24 18:59 06:59 18:59 Intake Total 200 Balance 200 Weight 68.8 kg Intake: Intake, IV Titration 200 Amount Ampicillin-Sulbactam 3 gm 200 In Sodium Chloride 0.9% 100 ml @ 200 mls/hr IVPB Q6HR [facility] Rx#:[id number] Other: Voiding Method Toilet Toilet # Voids 2 # Bowel Movements 6 - Exam GENERAL DESCRIPTION: Middle-age male lying in bed in no distress RESPIRATORY SYSTEM: Unlabored breathing , decreased breath sounds at bases HEART: S1 S2 regular rate and rhythm , ABDOMEN: Soft , no tenderness EXTREMITIES: Right groin/medial thigh with area of open wound surrounding redness and decreased - Labs CBC & Chem 7: 09/21/24 07:07 09/23/24 04:45 Labs: Abnormal Lab Results - Last 24 Hours (Table) 09/22/24 09/22/24 09/22/24 Range/Units 13:05 17:21 20:49 Chloride (98-107) mmol/L Carbon Dioxide (22-30) mmol/L BUN (9-20) mg/dL Creatinine (0.66-1.25) mg/dL Glucose (74-99) mg/dL POC Glucose (mg/dL) 194 H 217 H 140 H (70-110) mg/dL Calcium (8.4-10.2) mg/dL 09/23/24 09/23/24 09/23/24 Range/Units 00:48 04:45 07:47 Chloride 94 L (98-107) mmol/L Carbon Dioxide 40 H (22-30) mmol/L BUN 6 L (9-20) mg/dL Creatinine 0.59 L (0.66-1.25) mg/dL Glucose 143 H (74-99) mg/dL POC Glucose (mg/dL) 148 H 144 H (70-110) mg/dL Calcium 8.2 L (8.4-10.2) mg/dL Assessment and Plan (1) Abscess of right thigh Status: Acute Code(s): L02.415 - CUTANEOUS ABSCESS OF RIGHT LOWER LIMB SNOMED Code(s): 30050865993790281 Plan: 1patient presented to hospital increasing pain swelling redness to right upper thigh area with developing apparent abscess likely from gram-positive skin tim in this patient did have a history of MRSA likely related to MRSA 2-sulfa allergy that will limit the number of antibiotics safe to use 3-patient white count has normalized culture has been negative 4-patient will finish therapy with oral Augmentin and patient to increase probiotic and yogurt intake and a close outpatient follow-up Dictation was produced using [employer] dictation software. please excuse any grammatical, word or spelling errors. Time with Patient: Less than 30
== END 2024-09-23 12:32 | disposition home or self-care (01) | DRG 871 ==
LOC: EC 05:09 → SUPCPDRO 05:09 → 1SOBS 08:12 → 3SCARD 21:32 → 5NMEDONC 09-21 07:37
PROVIDERS: ADMIT Student in an Organized Health Care Education/Training Program; ATTEND Student in an Organized Health Care Education/Training Program
PROC: 0J9L0ZZ Drainage of Right Upper Leg Subcutaneous Tissue and Fascia, Open Approach (ICD-10-PCS; principal; 2024-09-18)
DX: A41.81 Sepsis due to Enterococcus (principal); E11.10 Type 2 diabetes mellitus with ketoacidosis without coma; L02.415 Cutaneous abscess of right lower limb; E87.1 Hypo-osmolality and hyponatremia; E87.6 Hypokalemia; L03.115 Cellulitis of right lower limb; R65.20 Severe sepsis without septic shock; Z79.4 Long term (current) use of insulin; E86.0 Dehydration; F17.210 Nicotine dependence, cigarettes, uncomplicated; E86.1 Hypovolemia; Z79.84 Long term (current) use of oral hypoglycemic drugs; Z86.14 Personal history of Methicillin resistant Staphylococcus aureus infection; Z88.2 Allergy status to sulfonamides
CPT/HCPCS: 36415; 72192; 80048; 80051; 80053; 80202; 80320; 81001; 82009; 82565; 82803; 82947; 83036; 83605; 83735; 84100; 84132; 84520; 85025; 85610; 85730; 86140; 87040; 87070; 87075; 87205; 87324; 93005; 96361; 96365; 96366; 96367; 96368; 96372; 96375; 96376; 99285